=== PATIENT | female | born 1950 | race Caucasian/White ===

== ENCOUNTER → 2016-11-20 | Outpatient (CLI) | payer BC ==
[~2016-11-20] MED LIST: AMB5 PO; CETITAB27 PO; CHOL1000 PO; CHOLTAB3 PO; EPP3/2 IM; FLNIN NAE; PRO AIR; RETIN A; VNTHFA/IN INH; ZOLP10TA PO
--- NOTE | 2016-11-20 15:48 | DIAGNOSTIC IMAGING REPORT ---
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 FINDINGS: The mastoid air cells appear symmetrically aerated. Middle ear cavities are well aerated. The sphenoid maxillary ethmoid and frontal sinuses are clear. There is nasal septal deviation to the right. The left ostiomeatal unit is patent. There is ostial narrowing of the right ostiomeatal unit. The olfactory fossa depth is 6 mm bilaterally. The frontal recesses are patent bilaterally IMPRESSION: 1. Nasal septal deviation to the right 2. Ostial narrowing of the right ostiomeatal unit 3. No evidence of significant mucosal thickening Electronically signed by: Jayy Drummond M.D. 11/20/2016 3:46 PM Dictated Date/Time: 11/20/2016 3:43 PM
== END | disposition home or self-care (01) ==
LOC: C.CTS 15:25
PROVIDERS: ATTEND Hospitalist
DX: J34.2 Deviated nasal septum (principal); J32.9 Chronic sinusitis, unspecified; J34.3 Hypertrophy of nasal turbinates; R09.81 Nasal congestion

== ENCOUNTER → 2016-12-24 | Outpatient (CLI) | payer BC ==
[2016-12-24 18:29] LABS: INFLUENZA A PCR Neg for Influ A (NEG); INFLUENZA B PCR Neg for Influ B (NEG)
== END | disposition home or self-care (01) ==
LOC: C.LABBC 14:40
PROVIDERS: ATTEND Family Medicine
DX: R68.89 Other general symptoms and signs (principal)

== ENCOUNTER → 2017-03-25 | Day surgery (SDC) | payer BC ==
[2017-03-19 13:39] VITALS: BMI 24.0
[~2017-03-25] VITALS: Ht 167.6 cm; Wt 67.7 kg
[~2017-03-25] MED LIST changes: -AMB5 PO; -CHOLTAB3 PO; -FLNIN NAE; +LIDOCAINE HCL 2% 2 ML VIAL (20MG/ML) ONE; +MIDAZOLAM HCL 1 MG/ML 2ML VIAL ONE; -PRO AIR; +PROPOFOL IV EMULSION 10 MG/ML 20 ML VIAL IV ONE; -RETIN A
[2017-03-25 09:57] VITALS: Ht 167.6 cm; Wt 67.7 kg
--- NOTE | 2017-03-25 10:29 | Endo History and Physical ---
History & Physical Date of Service: March 25, 2017. Chief Complaint: Screening for colon cancer Referring Physician: Dr. Spencer History of Present Illness 66 yo CF who presents for screening colonoscopy. Past Surgical History Hx Cardiac Surgery: No Hx Internal Defibrillator: No Hx Pacemaker: No Hx Abdominal Surgery: No Hx of Implantable Prosthesis: No Hx Post-Op Nausea and Vomiting: No Hx Cancer Surgery: Yes (RT/LEFT MASTECTOMY WITH RECONSTRUCTION AND REVISIONS) Hx Thoracic Surgery: No Hx Orthopedic: No Hx Urinary Tract Surgery: No Family History Colon CA Social History Smoking Status: Never Smoker Hx Substance Use: No Hx Alcohol Use: No Allergies Coded Allergies: Codeine (Verified Allergy, Intermediate, RASH, 03/25/17) Acetaminophen (Verified Allergy, Unknown, RASH, 03/19/17) Grass (Verified Allergy, Unknown, ALLERGY TESTING, 03/19/17) Mustard (Verified Allergy, Unknown, ANAPHYLAXIS, 03/19/17) Propoxyphene (Verified Allergy, Unknown, RASH AND VOMITTING, 03/19/17) Turmeric (Verified Allergy, Unknown, ANAPHYLAXIS, 03/19/17) Current Medications Reported Home Medications Medications Dose Route/Sig Max Daily Dose Days Date Category Vitamin D3 (Cholecalciferol) 1,000 Unit Tab 1 Tab PO DAILY 90 03/19/17 Reported Ventolin Hfa (Albuterol) 200 Puffs/30281 Mcg Aers 2-4 Puffs INH Q6H PRN 03/19/17 Reported Ambien (Zolpidem Tartrate) 10 Mg Tab 5 Mg PO HS PRN 03/19/17 Reported Zyrtec-D Er 5MG/120MG (Cetirizine/Pseudoephedrine) Tabcr 1 Tab PO Q12H 03/19/17 Reported Epipen (Epinephrine) 0.3 Mg/0.3 Ml Inj 0.3 Mg IM UD 12/13/12 Reported Vital Signs Weight (Kilograms): 67.73 Height (Feet): 5 Height (Inches): 6 Date Time Temp Pulse Resp B/P Pulse Ox O2 Delivery O2 Flow Rate FiO2 03/25/17 10:02 36.6 79 20 128/61 99 Room Air Physical Exam General Appearance: WD/WN, no apparent distress Respiratory/Chest: Auscultation: breath sounds normal Cardiovascular: Heart Auscultation: RRR Abdomen: Bowel Sounds: normal Inspection & Palpation: soft, non-distended, no tenderness, guarding & rebound Assessment and Plan Assessment: 66 yo CF who presents for screening colonoscopy. Plan: Proceed with colonoscopy.
--- NOTE | 2017-03-25 10:49 | Discharge Instructions ---
Endoscopy Patient Instructions Date / Procedure(s) Performed March 25, 2017. Colonoscopy Allergy Information Coded Allergies: Codeine (Verified Allergy, Intermediate, RASH, 03/25/17) Acetaminophen (Verified Allergy, Unknown, RASH, 03/19/17) Grass (Verified Allergy, Unknown, ALLERGY TESTING, 03/19/17) Mustard (Verified Allergy, Unknown, ANAPHYLAXIS, 03/19/17) Propoxyphene (Verified Allergy, Unknown, RASH AND VOMITTING, 03/19/17) Turmeric (Verified Allergy, Unknown, ANAPHYLAXIS, 03/19/17) Discharge Date / Findings March 25, 2017. Diverticulosis Internal hemorrhoids Medication Instructions OK to resume all medications today as prescribed Reported Home Medications Medications Dose Route/Sig Max Daily Dose Days Date Category Vitamin D3 (Cholecalciferol) 1,000 Unit Tab 1 Tab PO DAILY 90 03/19/17 Reported Ventolin Hfa (Albuterol) 200 Puffs/18537 Mcg Aers 2-4 Puffs INH Q6H PRN 03/19/17 Reported Ambien (Zolpidem Tartrate) 10 Mg Tab 5 Mg PO HS PRN 03/19/17 Reported Zyrtec-D Er 5MG/120MG (Cetirizine/Pseudoephedrine) Tabcr 1 Tab PO Q12H 03/19/17 Reported Epipen (Epinephrine) 0.3 Mg/0.3 Ml Inj 0.3 Mg IM UD 12/13/12 Reported Provider Instructions Activity Restrictions - No exercising or heavy lifting for 24 hours. - Do not drink alcohol the day of the procedure. - Do not drive a car or operate machinery until the day after the procedure. - Do not make any important decisions or sign important papers in 24 hours after the procedure. Following Day: - Return to full activity which may include returning to work/school. Diet Start your diet with liquids and light foods (jello, soup, juice, toast). Then eat your usual diet if not nauseated. Treatment For Common After Affects For mild abdominal pain, bloating, or excessive gas: - Rest - Eat lightly - Lie on right side Follow-Up Information Follow-up with Dr. Spencer as scheduled Anesthesia Information What You Should Know You have had a procedure that required some medicine to reduce anxiety and discomfort. This treatment is called moderate sedation. After receiving the treatment, you may be sleepy, but you will be able to breathe on your own. The effects of the treatment may last for several hours. Follow these instructions along with Activity/Diet recommendations noted above: * Do NOT do anything where dizziness or clumsiness would be dangerous. * Rest quietly at home today, then you can be up and about tomorrow. * Have a responsible person stay with you the rest of today. * You may have had an I.V. today. If so, you may take the dressing off later today. Recommendations Call your doctor if: * Trouble breathing * Continuous vomiting for more than 24 hours * Temperature above 101 degrees * Severe abdominal pain or bloating * Pain not relieved by pain medicine ordered * There is increased drainage or redness from any incision * A large amount of rectal bleeding greater than 2-3 tablespoons. (If you had a polyp/s removed or have hemorrhoids, a small amount of blood - from the rectum is to be expected.) * You have any unanswered questions or concerns. IN THE EVENT OF A SERIOUS EMERGENCY, GO TO THE NEAREST EMERGENCY ROOM Your discharge instructions were prepared by provider Jamel Ardon. Patient Instructions Signature Page Tabatha Cole Patient (or Guardian) Signature/Date: I have read and understand the instructions given to me by my caregivers. Caregiver/RN/Doctor Signature/Date: The above-named patient and/or guardian has received patient instructions on this date. + Original Patient Signature Page (only) stays with chart. Please make copy for patient.
--- NOTE | 2017-03-25 10:52 | GI REPORT ---
Procedure Date: 03/25/2017 10:20 AM Procedure: Colonoscopy Indications: Screening for colorectal malignant neoplasm Medicines: Monitored Anesthesia Care Complications: No immediate complications. Estimated Blood Loss: Estimated blood loss: none. Procedure: Pre-Anesthesia Assessment: - Prior to the procedure, a History and Physical was performed, and patient medications and allergies were reviewed. The patient's tolerance of previous anesthesia was also reviewed. The risks and benefits of the procedure and the sedation options and risks were discussed with the patient. All questions were answered, and informed consent was obtained. Prior Anticoagulants: The patient has taken no previous anticoagulant or antiplatelet agents. ASA Grade Assessment: II - A patient with mild systemic disease. After reviewing the risks and benefits, the patient was deemed in satisfactory condition to undergo the procedure. After I obtained informed consent, the scope was passed under direct vision. Throughout the procedure, the patient's blood pressure, pulse, and oxygen saturations were monitored continuously. The scope was introduced through the anus and advanced to the terminal ileum. The colonoscopy was performed without difficulty. The patient tolerated the procedure well. The quality of the bowel preparation was good. The terminal ileum, ileocecal valve, appendiceal orifice, and rectum were photographed. Findings: Multiple small-mouthed diverticula were found in the sigmoid colon. Non-bleeding internal hemorrhoids were found during retroflexion. The hemorrhoids were small. Impression: - Diverticulosis in the sigmoid colon. - Non-bleeding internal hemorrhoids. - No specimens collected. Recommendation: - Resume previous diet. - Continue present medications. - Repeat colonoscopy in 10 years for surveillance. - Return to primary care physician as previously scheduled. Jamel Ardon, 03/25/2017 10:51:36 AM This report has been signed electronically. Note Initiated On: 03/25/2017 10:20 AM I attest to the content of the Intraoperative Record and orders documented therein, exceptions below
--- NOTE | 2017-03-25 11:20 | Anesthesiology Progress Note ---
Anesthesia Post Op Note Date & Time March 25, 2017 at 11:20 Vital Signs Pain Intensity: 0 Vital Signs Past 12 Hours Date Time Temp Pulse Resp B/P Pulse Ox O2 Delivery O2 Flow Rate FiO2 03/25/17 11:09 67 20 124/65 100 Room Air 03/25/17 10:54 36.4 66 20 113/67 99 Room Air 03/25/17 10:02 36.6 79 20 128/61 99 Room Air Notes Mental Status: alert / awake / arousable, participated in evaluation Pt Amnestic to Procedure: Yes Nausea / Vomiting: adequately controlled Pain: adequately controlled Airway Patency, RR, SpO2: stable & adequate BP & HR: stable & adequate Hydration State: stable & adequate Anesthetic Complications: no major complications apparent
[2017-03-25 11:24] VITALS: BP 114/70; PULSE 69; O2SAT 99
== END | disposition home or self-care (01) ==
LOC: C.GI 09:25
PROVIDERS: ATTEND Internal Medicine
DX: Z12.11 Encounter for screening for malignant neoplasm of colon (principal); K64.8 Other hemorrhoids; K57.30 Diverticulosis of large intestine without perforation or abscess without bleeding; Z90.13 Acquired absence of bilateral breasts and nipples; Z80.0 Family history of malignant neoplasm of digestive organs

== ENCOUNTER → 2018-01-11 | Outpatient (CLI) | payer OTHER ==
[~2018-01-11] MED LIST changes: -LIDOCAINE HCL 2% 2 ML VIAL (20MG/ML) ONE; -MIDAZOLAM HCL 1 MG/ML 2ML VIAL ONE; -PROPOFOL IV EMULSION 10 MG/ML 20 ML VIAL IV ONE
== END | disposition home or self-care (01) ==
LOC: C.LAB1850 13:52
PROVIDERS: ATTEND Internal Medicine
DX: R68.89 Other general symptoms and signs (principal)

== ENCOUNTER 2019-12-22 07:10 | Inpatient (IN) ==
--- NOTE | 2019-12-02 14:22 | PAT Medication Instructions ---
Medication Instructions Date of Service December 02, 2019 Home Medications Medication Instructions Recorded tretinoin microspheres 0.1 % 1 appln TOPICAL HS #20 gm 08/09/19 topical gel albuterol sulfate 90 mcg/actuation aerosol inhaler 2 puffs INHALATION Q4H PRN artificial tears(hypromellose) 0.3 % eye drops 1 drp OP UD cetirizine 5 mg-pseudoephedrine ER 120 mg tablet,extended release,12hr 1 tab PO BID ciclopirox 8 % topical solution 1 appln TOPICAL DAILY epinephrine 0.3 mg/0.3 mL injection, auto-injector 0.3 mg IM USEASDIRECTD PRN fluticasone propionate 50 mcg/actuation nasal spray,suspension 1 sprays INTRANASAL BID tretinoin microspheres 0.1 % topical gel 1 appln TOPICAL HS zolpidem 5 mg PO HS PRN Continue as directed epinephrine 0.3 mg/0.3 mL injection, auto-injector 0.3 mg IM USEASDIRECTD PRN STOP taking 24 hours before surgery ciclopirox 8 % topical solution 1 appln TOPICAL DAILY tretinoin microspheres 0.1 % topical gel 1 appln TOPICAL HS DO NOT take the morning of surgery cetirizine 5 mg-pseudoephedrine ER 120 mg tablet,extended release,12hr 1 tab PO BID Take morning of surgery With a small sip of water, OTHERWISE NOTHING TO EAT OR DRINK AFTER MIDNIGHT: albuterol sulfate 90 mcg/actuation aerosol inhaler 2 puffs INHALATION Q4H PRN (if needed, and bring with you to the hospital) artificial tears(hypromellose) 0.3 % eye drops 1 drp OP UD fluticasone propionate 50 mcg/actuation nasal spray,suspension 1 sprays INTRANASAL BID Take evening before surgery albuterol sulfate 90 mcg/actuation aerosol inhaler 2 puffs INHALATION Q4H PRN (if needed) artificial tears(hypromellose) 0.3 % eye drops 1 drp OP UD cetirizine 5 mg-pseudoephedrine ER 120 mg tablet,extended release,12hr 1 tab PO BID fluticasone propionate 50 mcg/actuation nasal spray,suspension 1 sprays INTRANASAL BID zolpidem 5 mg PO HS PRN (if needed) Other Notes If you have any questions please call us at [phone] or [phone] or [phone] or [phone]
--- NOTE | 2019-12-02 14:53 | Anesthesiology Consultation ---
Date of Service December 02, 2019 Assessment & Plan (1) Encounter for pre-operative examination: Chart Review Chart Review: Acceptable Risk for Surgery (pending surgeon ordered PCP clearance) and Patient seen in Pre Admission Testing Teaching & Discussion Instructed NPO after midnight before surgery, except medications with 15 cc of water. Medication instructions provided according to the PAT guidelines. History Surgery Operation Date: 12/22/19 11:35 Proposed Procedures p Right Total Hip Arthroplasty - Walter Giraldo MD Height/Weight Height: 5 ft 6 in Weight: 69.3 kg Allergies Allergy/AdvReac Type Severity Reaction Status Date / Time acetaminophen Allergy Unknown RASH Verified 11/30/19 14:26 codeine Allergy Unknown RASH Verified 11/30/19 14:26 grass pollen-perennial rye, Allergy Unknown ALLERGY Verified 11/30/19 14:26 standar TESTING levocetirizine Allergy Unknown ITCHING Verified 11/30/19 14:26 ALL OVER mustard Allergy Unknown ANAPHYLAXIS Verified 11/30/19 14:26 naproxen Allergy Unknown RED Verified 11/30/19 15:12 PURPLISH SPOTS ON LEG, LOOKS LIKE BROKEN BLOOD VESSELS oxycodone [From Percocet] Allergy Unknown Rash Verified 11/30/19 14:26 propoxyphene Allergy Unknown RASH AND Verified 11/30/19 14:26 VOMITTING silver Allergy Unknown RASH, ITCHY Verified 11/30/19 15:12 silver nitrate Allergy Unknown RASH, ITCHY Verified 11/30/19 15:12 sodium citrate Allergy Unknown SKIN Verified 11/30/19 14:26 REDNESS AND CHEST CONGESTION sodium metabisulfite Allergy Unknown SKIN Verified 11/30/19 14:26 REDNESS AND CHEST CONGESTION sodium sulfate Allergy Unknown SKIN Verified 11/30/19 14:26 REDNESS AND CHEST CONGESTION turmeric Allergy Unknown ANAPHYLAXIS Verified 11/30/19 14:26 Bee sting Allergy Severe BRILLIANT Uncoded 11/30/19 14:26 RED, AND BP DROPPED DUST MITES Allergy Unknown CONGESTION Uncoded 11/30/19 14:27 Medications Home Medications Medication Instructions Recorded Confirmed Last Taken albuterol sulfate 90 mcg/actuation 2 puffs INHALATION Q4H PRN #1 gm 08/08/19 11/30/19 Unknown aerosol inhaler artificial tears(hypromellose) 0.3 1 drp OP UD 08/08/19 11/30/19 Unknown % eye drops cetirizine 5 mg-pseudoephedrine ER 1 tab PO BID 08/08/19 11/30/19 Unknown 120 mg tablet,extended release,12hr ciclopirox 8 % topical solution 1 appln TOPICAL DAILY #1 ml 08/08/19 11/30/19 Unknown epinephrine 0.3 mg/0.3 mL 0.3 mg IM USEASDIRECTD PRN #1 ea 08/08/19 11/30/19 Unknown injection, auto-injector fluticasone propionate 50 1 sprays INTRANASAL BID #3 gm 08/08/19 11/30/19 Unknown mcg/actuation nasal spray,suspension tretinoin microspheres 0.1 % 1 appln TOPICAL HS #20 gm 08/09/19 11/30/19 Unknown topical gel zolpidem 5 mg PO HS PRN 11/30/19 11/30/19 Unknown Past Medical History Medical History (Updated 12/05/19 @ 08:30 by Torin Forbes) Acid reflux UNSURE IF DEFINITIVE DX Asthma ALLERGIC, USING ONLY A COUPLE TIMES PER YEAR AT MOST Basal cell carcinoma of skin of face FOLLOWING WITH DERM Chronic sinusitis Degenerative arthritis R HIP Deviated septum Dyslipidemia History of breast cancer S/P MASTECTOMY History of cataract R&L History of prediabetes Hx antineoplastic chemotherapy 2005 WITH RADIATION FOR BREAST CANCER Hx of radiation therapy FOR BREAST CANCER REOCCURENCE. Hypothyroid (Chronic) 2/2 RADIATION PER PATIENT Nausea and vomiting after administration of anesthetic agent Osteopenia Poor historian Thyroid nodule Exercise / Class Metabolic Activity II 4-5 Yardwork/Stairs/Walk up hill (Denies CP or SOB with 1 FOS, does daily at home) Past Family History Family History Mother Bipolar disorder Osteoarthritis Breast cancer Hypertension Stroke Father Alzheimer disease Hypertension Grandfather (Paternal) Cardiac disorder Aunt Breast cancer maternal Colorectal cancer maternal Asthma paternal Grandmother Family history of diabetes mellitus Past Surgical History Surgical History H/O tooth extraction History of biopsy THYROID S/P abdominoplasty S/P breast biopsy S/P breast reconstruction S/P cataract surgery S/P colonoscopy S/P hernia repair S/P mastectomy HX OF left 1989, right 1990 Past Anesthesia History No Hx of Anesthesia Complications (other than PONV) and No Family Hx of Anesthesia Complications History of PONV History of PONV and Hx of Motion Sickness Social History Smoking Status: Never smoker Do You Dip or Chew Tobacco: No Hx Alcohol Use: No Hx Substance Use: No substance use type: does not use Review of Systems Pt denies any recent chest pain, shortness of breath, palpitations, cough, fever or URI. Physical Exam Vital Signs BP: 119/74 P: 79bpm SPO2: 100% RA T: 98.4 F R: 12 ENMT Mouth: + dental restorations (one crown and few gold fillings); no chipped teeth and no loose teeth Thyromental Distance: < 3.5 Finger Breadths (3) Mallampati Class: I Neck normal visual inspection; neck extension not limited Respiratory normal respiratory effort Auscultation: lungs clear to auscultation bilaterally Cardiovascular Rate/Rhythm: regular rate and regular rhythm Heart Sounds: no murmur Vessels: no carotid bruit Extremities: no edema Testing Laboratory Results 12/02/19 14:58 12/02/19 14:58 PT 10.3 Seconds (9.0-12.0) 12/02/19 14:58 INR 1.0 (0.9-1.1) 12/02/19 14:58 APTT 27.0 Seconds (21.0-31.0) 12/02/19 14:58 Hemoglobin A1c 5.8 % (4.5-5.6) H 12/02/19 14:58 Urine Color Yellow 12/02/19 Unknown Urine Appearance Clear (Clear) 12/02/19 Unknown Urine pH 6.5 (4.5-7.5) 12/02/19 Unknown Ur Specific Earth 1.011 (1.000-1.030) 12/02/19 Unknown Urine Protein Negative (Negative) 12/02/19 Unknown Urine Glucose (UA) Negative (Negative) 12/02/19 Unknown Urine Ketones Negative (Negative) 12/02/19 Unknown Urine Nitrite Negative (Negative) 12/02/19 Unknown Ur Leukocyte Esterase Negative (Negative) 12/02/19 Unknown Blood Type O Negative 12/02/19 14:58 Antibody Screen NEGATIVE 12/02/19 14:58 12/02/19 Unknown Urine Culture - Final Urine,Clean Catch No growth - less than 1,000 colonies/mL. Electrocardiogram Date: 12/02/19 Findings: + NSR @ (73) Biatrial enlargement. No significant change from 06/20/09.
[2019-12-02 15:32] LABS: Basophils # (auto) 0.02 K/uL (0-0.2); Basophils % (auto) 0.3 %; Eosinophils # (auto) 0.14 K/uL (0-0.5); Eosinophils % (auto) 1.9 %; Hematocrit (blood only) 42.6 % (37-47); Hemoglobin 13.9 g/dL (12.0-16.0); Immature Granulocytes # (auto) 0.02 K/uL (0.00-0.02); Immature Granulocytes % (auto) 0.3 %; Lymphocytes # (auto) 1.86 K/uL (1.2-3.4); Lymphocytes % (auto) 25.1 %; Mean Corpuscular Hemoglobin 29.4 pg (25-34); Mean Corpuscular Hgb Conc 32.6 g/dL (32-36); Mean Corpuscular Volume 90.1 fL (80-100); Mean Platelet Volume 10.3 fL (7.4-10.4); Monocytes # (auto) 0.71 K/uL (0.11-0.59); Monocytes % (auto) 9.6 %; Neutrophils # (auto) 4.65 K/uL (1.4-6.5); Neutrophils % (auto) 62.8 %; Platelet Count 287 K/uL (130-400); RDW Coefficient of Variation 13.1 % (11.5-14.5); RDW Standard Deviation 43.3 fL (36.4-46.3); Red Blood Count 4.73 M/uL (4.2-5.4)
[2019-12-02 15:35] LABS: Appearance Urine Clear (Clear); Bilirubin Urine Negative (Negative); Blood Urine Negative (Negative); Color Urine Yellow; Glucose Urine UA Negative (Negative); Ketones Urine Negative (Negative); Leukocyte Esterase Urine Negative (Negative); Nitrite Urine Negative (Negative); Protein Urine Negative (Negative); Specific Gravity Urine 1.011 (1.000-1.030); Urobilinogen Urine Negative (Negative); pH Urine 6.5 (4.5-7.5)
[2019-12-02 15:41] LABS: Albumin Level 3.9 gm/dl (3.4-5.0); BUN Creatinine Ratio 19.8 (10-20); Calcium 9.4 mg/dl (8.5-10.1); Creatinine Clr Calc Pharmacy 55.5 ml/min; Est GFR (African American) 77.7; Potassium 3.7 mmol/L (3.5-5.1)
[2019-12-02 15:43] LABS: Prothrombin Time 10.3 Seconds (9.0-12.0)
[2019-12-02 15:44] LABS: Albumin Globulin Ratio 1.1 (0.9-2); Bilirubin,Total 0.8 mg/dl (0.2-1); Globulin 3.6 gm/dl (2.5-4.0); Total Protein 7.5 gm/dl (6.4-8.2)
--- NOTE | 2019-12-02 17:29 | Electrocardiogram Report ---
Test Reason : Blood Pressure : / mmHG Vent. Rate : 073 BPM Atrial Rate : 073 BPM P-R Int : 148 ms QRS Dur : 082 ms QT Int : 412 ms P-R-T Axes : 078 083 089 degrees QTc Int : 453 ms Normal sinus rhythm Biatrial enlargement Abnormal ECG When compared with ECG of 20-JUN-2009 20:22, No significant change was found Confirmed by Bk Guido ([id number]) on 12/02/2019 5:29:04 PM Referred By: Walter Giraldo Confirmed By:Jermaine Guido
[2019-12-03 08:23] LABS: Estimated Average Glucose 120 mg/dl; Hemoglobin A1C 5.8 % (4.5-5.6)
--- NOTE | 2019-12-06 10:44 | History & Physical Report ---
Date of Service December 06, 2019 Assessment & Plan (1) Osteoarthritis of right hip: Diagnosis: Right hip osteoarthritis Procedure: Right total hip arthroplasty Plan: Patient is scheduled to undergo right total hip arthroplasty on December at the [facility] as an inpatient. Risks and complications of the procedure such as a infection, bleeding, pain, scarring, nerve blood vessel damage, weakness, wound problems, stiffness, incomplete relief of symptoms, hardware failure, hardware loosening, wear, fracture, tendon or ligament injury, dislocation, leg length inequality, blood clots, embolism, heart attack, stroke, and were explained to the patient had a visit today by Dr. Giraldo. Patient understood the risks and informed consent was obtained. Patient had significant worries about leg length inequality due to her SI joint dysfunction. Patient has an upcoming appointment with her primary care provider Dr. Perez to obtain preoperative clearance. Prior to her appointment today she met with anesthesia and had a CBC with differ ential, complete metabolic panel, PT/INR, blood type and screen, urinalysis, urine culture, EKG, hemoglobin A1c, and a nasal culture for MRSA. The total hip arthroplasty packet was reviewed at length. I also provided the patient with information about lectures offered at [facility] in regards to joint replacement surgery. I educated her about the use of antibiotics before dental procedures after total joint replacement surgery. We discussed discharge planning. Patient states that she will most likely be discharged to her home with in-house therapy depending on how well she does with physical therapy day 1 postop. I advised the patient that I will provide her with postoperative pain medications upon discharge from the hospital. She will be on a baby aspirin twice daily for 30 days postoperatively for blood clot prevention. I instructed her to purchase a hip kit from either [employer] or [employer]. Patient states that she has a walker that she will bring with her on the day of surgery. Patient and her had multiple questions during her visit today and all were answered completely and effectively. I spent approximately 1 hour and 20 minutes with the patient during her preoperative visit today. Patient and her verbalized understanding of all information provided, thanked us for the care, and stated if there are questions or concerns that should arise prior to the patient surgery date, they will contact clinic accordingly. History of Present Illness Chief Complaint: Chief complaint: Right hip pain Primary Care Provider: Caitlin Ramesh,MD History of present illness: This 69-year-old female presents the clinic today for preoperative history and physical. Patient complains of 1 1/2-year history of persistent right hip pain that is become worse over the past few months. She states that the pain prevents her from walking her dog or walking on the beach during her most recent vacation. Patient states she has tried conservative measures over the past year without alleviation of her pain. She localizes most of her pain to the right groin. Symptoms are exacerbated with her activity levels. Patient has been attending physical therapy but states that it has not helped alleviate her pain. Allergies: Darvocet-N 100, Percocet 03/04/2025, codeine, tumeric, mustard, dust mites, grass, bee stings Medications: albuterol CFC free 90 mcg/inh MDI, 1 puff, inhaled, qid, PRN Ambien, See Instructions, PRN cholecalciferol 1000 intl units oral tablet, 1000 Int_Unit= 1 tab, PO, Daily ciclopirox 8% topical solution, 1 appl, topical, Daily, 3 refills Fish Oil oral capsule, PO, Daily Flonase, 1 spray, intranasal, Daily Metamucil 3.4 gm/11 gm oral powder for reconstitution, See Instructions naproxen 500 mg oral tablet, 500 mg= 1 tab, PO, bid, 1 refills, Not taking tretinoin 0.1% topical cream, 1 appl, topical, qhs, 3 refills ZyrTEC-D 5 mg-120 mg oral tablet, extended release, 1 tab, PO, bid, PRN Social history: Patient denies a history of tobacco alcohol or illicit drug use. . Radiographic imaging: X-rays of the right hip show severe osteoarthritis. There is no sign of dislocation subluxation or fracture. There was note of clips in the pelvic area consistent with prior surgery. Allergies Allergy/AdvReac Type Severity Reaction Status Date / Time acetaminophen Allergy Unknown RASH Verified 11/30/19 14:26 codeine Allergy Unknown RASH Verified 11/30/19 14:26 grass pollen-perennial rye, Allergy Unknown ALLERGY Verified 11/30/19 14:26 standar TESTING levocetirizine Allergy Unknown ITCHING Verified 11/30/19 14:26 ALL OVER mustard Allergy Unknown ANAPHYLAXIS Verified 11/30/19 14:26 naproxen Allergy Unknown RED Verified 11/30/19 15:12 PURPLISH SPOTS ON LEG, LOOKS LIKE BROKEN BLOOD VESSELS oxycodone [From Percocet] Allergy Unknown Rash Verified 11/30/19 14:26 propoxyphene Allergy Unknown RASH AND Verified 11/30/19 14:26 VOMITTING silver Allergy Unknown RASH, ITCHY Verified 11/30/19 15:12 silver nitrate Allergy Unknown RASH, ITCHY Verified 11/30/19 15:12 sodium citrate Allergy Unknown SKIN Verified 11/30/19 14:26 REDNESS AND CHEST CONGESTION sodium metabisulfite Allergy Unknown SKIN Verified 11/30/19 14:26 REDNESS AND CHEST CONGESTION sodium sulfate Allergy Unknown SKIN Verified 11/30/19 14:26 REDNESS AND CHEST CONGESTION turmeric Allergy Unknown ANAPHYLAXIS Verified 11/30/19 14:26 Bee sting Allergy Severe BRILLIANT Uncoded 11/30/19 14:26 RED, AND BP DROPPED DUST MITES Allergy Unknown CONGESTION Uncoded 11/30/19 14:27 Home Medications Home Medications Medication Instructions Recorded Confirmed Type albuterol sulfate 90 mcg/actuation 2 puffs INHALATION Q4H PRN #1 gm 08/08/19 11/30/19 History aerosol inhaler artificial tears(hypromellose) 0.3 1 drp OP UD 08/08/19 11/30/19 History % eye drops cetirizine 5 mg-pseudoephedrine ER 1 tab PO BID 08/08/19 11/30/19 History 120 mg tablet,extended release,12hr ciclopirox 8 % topical solution 1 appln TOPICAL DAILY #1 ml 08/08/19 11/30/19 History epinephrine 0.3 mg/0.3 mL 0.3 mg IM USEASDIRECTD PRN #1 ea 08/08/19 11/30/19 History injection, auto-injector fluticasone propionate 50 1 sprays INTRANASAL BID #3 gm 08/08/19 11/30/19 History mcg/actuation nasal spray,suspension tretinoin microspheres 0.1 % 1 appln TOPICAL HS #20 gm 08/09/19 11/30/19 Rx topical gel zolpidem 5 mg PO HS PRN 11/30/19 11/30/19 History Past Med/Surg History Medical History Acid reflux UNSURE IF DEFINITIVE DX Asthma ALLERGIC, USING ONLY A COUPLE TIMES PER YEAR AT MOST Basal cell carcinoma of skin of face FOLLOWING WITH DERM Chronic sinusitis Degenerative arthritis R HIP Deviated septum Dyslipidemia History of breast cancer S/P MASTECTOMY History of cataract R&L History of prediabetes Hx antineoplastic chemotherapy 2006 WITH RADIATION FOR BREAST CANCER Hx of radiation therapy FOR BREAST CANCER REOCCURENCE. Hypothyroid (Chronic) 2/2 RADIATION PER PATIENT Nausea and vomiting after administration of anesthetic agent Osteopenia Poor historian Thyroid nodule Surgical History H/O tooth extraction History of biopsy THYROID S/P abdominoplasty S/P breast biopsy S/P breast reconstruction S/P cataract surgery S/P colonoscopy S/P hernia repair S/P mastectomy HX OF left 1989, right 1990 Family History Mother Bipolar disorder Osteoarthritis Breast cancer Hypertension Stroke Father Alzheimer disease Hypertension Grandfather (Paternal) Cardiac disorder Aunt Breast cancer maternal Colorectal cancer maternal Asthma paternal Grandmother Family history of diabetes mellitus Social History Preferred Language: Palauan Communication Ability: Effective Spray Unit Feeder Required: No Beliefs That Will Affect Care: None marital status: Current Living Situation: Spouse Feels Safe at Home: Yes Smoking Status: Never smoker Second Hand Exposure: No ; Hx Alcohol Use: No Hx Substance Use: No Seatbelt Use: always Review of Systems All systems reviewed & are unremarkable except as noted in HPI & below Physical Exam Physical Exam: Physical examination: Skin: Patient skin is normal appearance with no open skin lesions or discharge. Eyes: Pupils are equal and reactive to light accommodating, extraocular movements are intact. Throat: Posterior oropharynx is clear with absence of edema erythema or exudate. Cardiovascular exam: Patient has a grade 1/6 holosystolic murmur heard best over the left lower sternal border. She had no gallops. She had a regular rate and rhythm. Lung exam: Auscultation of lung abdi were revealed clear breath sounds throughout with no wheezing rales or rhonchi. Abdomen: Nonobese nontender nondistended with normoactive bowel sounds. Extremities: Right hip; hip flexion was to 135 degrees internal rotation to -5 degrees external rotation to 20 degrees. Stinchfield test was negative. Straight leg raise test was negative. Logroll test was negative. Eileen test was 4 fists with referred pain to the groin. Patient had tenderness palpation of the anterior groin. There was crepitation with range of motion. She was neurovascularly intact in the right lower extremity. She had no tenderness to palpation of the greater trochanter. Passive Abduction and adduction cause referred pain to the groin. Neurological exam: Cranial nerves II through XII intact with no motor or sensory deficit. General/psychological exam: Patient is alert and oriented x3 with appropriate hygiene. Results & Data Laboratory Results Lab Results 12/02/19 12/02/19 12/02/19 Range/Units 14:58 14:58 14:58 WBC 7.40 (4.8-10.8) K/uL RBC 4.73 (4.2-5.4) M/uL Hgb 13.9 (12.0-16.0) g/dL Hct 42.6 (37-47) % MCV 90.1 (80-100) fL MCH 29.4 (25-34) pg MCHC 32.6 (32-36) g/dL RDW Std Deviation 43.3 (36.4-46.3) fL RDW Coeff of Sejal 13.1 (11.5-14.5) % Plt Count 287 (130-400) K/uL MPV 10.3 (7.4-10.4) fL Immature Gran % (Auto) 0.3 % Neut % (Auto) 62.8 % Lymph % (Auto) 25.1 % [place] % (Auto) 9.6 % Eos % (Auto) 1.9 % Baso % (Auto) 0.3 % Immature Gran # (Auto) 0.02 (0.00-0.02) K/uL Neut # (Auto) 4.65 (1.4-6.5) K/uL Lymph # (Auto) 1.86 (1.2-3.4) K/uL [place] # (Auto) 0.71 H (0.11-0.59) K/uL Eos # (Auto) 0.14 (0-0.5) K/uL Baso # (Auto) 0.02 (0-0.2) K/uL PT 10.3 (9.0-12.0) Seconds INR 1.0 (0.9-1.1) APTT 27.0 (21.0-31.0) Seconds PTT Ratio 1.0 Sodium (136-145) mmol/L Potassium (3.5-5.1) mmol/L Chloride (98-107) mmol/L Carbon Dioxide (21-32) mmol/L Anion Gap (3-11) BUN (7-18) mg/dl Creatinine (0.6-1.2) mg/dl Est Cr Clr Drug Dosing ml/min Est GFR ( Amer) Est GFR (Non-Af Amer) BUN/Creatinine Ratio (10-20) Glucose (70-99) mg/dl Estimat Average Glucose 120 mg/dl Hemoglobin A1c 5.8 H (4.5-5.6) % Calcium (8.5-10.1) mg/dl Total Bilirubin (0.2-1) mg/dl AST (15-37) U/L ALT (12-78) U/L Alkaline Phosphatase (45-117) U/L Total Protein (6.4-8.2) gm/dl Albumin (3.4-5.0) gm/dl Globulin (2.5-4.0) gm/dl Albumin/Globulin Ratio (0.9-2) Urine Color Urine Appearance (Clear) Urine pH (4.5-7.5) Ur Specific [place] (1.000-1.030) Urine Protein (Negative) Urine Glucose (UA) (Negative) Urine Ketones (Negative) Urine Blood (Negative) Urine Nitrite (Negative) Urine Bilirubin (Negative) Urine Urobilinogen (Negative) Ur Leukocyte Esterase (Negative) Nasal Screen MRSA (PCR) (Negative) Blood Type Antibody Screen 12/02/19 12/02/19 12/02/19 Range/Units 14:58 14:58 Unknown WBC (4.8-10.8) K/uL RBC (4.2-5.4) M/uL Hgb (12.0-16.0) g/dL Hct (37-47) % MCV (80-100) fL MCH (25-34) pg MCHC (32-36) g/dL RDW Std Deviation (36.4-46.3) fL RDW Coeff of Sejal (11.5-14.5) % Plt Count (130-400) K/uL MPV (7.4-10.4) fL Immature Gran % (Auto) % Neut % (Auto) % Lymph % (Auto) % [place] % (Auto) % Eos % (Auto) % Baso % (Auto) % Immature Gran # (Auto) (0.00-0.02) K/uL Neut # (Auto) (1.4-6.5) K/uL Lymph # (Auto) (1.2-3.4) K/uL [place] # (Auto) (0.11-0.59) K/uL Eos # (Auto) (0-0.5) K/uL Baso # (Auto) (0-0.2) K/uL PT (9.0-12.0) Seconds INR (0.9-1.1) APTT (21.0-31.0) Seconds PTT Ratio Sodium 137 (136-145) mmol/L Potassium 3.7 (3.5-5.1) mmol/L Chloride 101 (98-107) mmol/L Carbon Dioxide 32 (21-32) mmol/L Anion Gap 4.0 (3-11) BUN 17 (7-18) mg/dl Creatinine 0.87 (0.6-1.2) mg/dl Est Cr Clr Drug Dosing 55.5 ml/min Est GFR ( Amer) 77.7 Est GFR (Non-Af Amer) 67.0 BUN/Creatinine Ratio 19.8 (10-20) Glucose 94 (70-99) mg/dl Estimat Average Glucose mg/dl Hemoglobin A1c (4.5-5.6) % Calcium 9.4 (8.5-10.1) mg/dl Total Bilirubin 0.8 (0.2-1) mg/dl AST 14 L (15-37) U/L ALT 26 (12-78) U/L Alkaline Phosphatase 79 (45-117) U/L Total Protein 7.5 (6.4-8.2) gm/dl Albumin 3.9 (3.4-5.0) gm/dl Globulin 3.6 (2.5-4.0) gm/dl Albumin/Globulin Ratio 1.1 (0.9-2) Urine Color Yellow Urine Appearance Clear (Clear) Urine pH 6.5 (4.5-7.5) Ur Specific [place] 1.011 (1.000-1.030) Urine Protein Negative (Negative) Urine Glucose (UA) Negative (Negative) Urine Ketones Negative (Negative) Urine Blood Negative (Negative) Urine Nitrite Negative (Negative) Urine Bilirubin Negative (Negative) Urine Urobilinogen Negative (Negative) Ur Leukocyte Esterase Negative (Negative) Nasal Screen MRSA (PCR) (Negative) Blood Type O Negative Antibody Screen NEGATIVE 12/02/19 Range/Units Unknown WBC (4.8-10.8) K/uL RBC (4.2-5.4) M/uL Hgb (12.0-16.0) g/dL Hct (37-47) % MCV (80-100) fL MCH (25-34) pg MCHC (32-36) g/dL RDW Std Deviation (36.4-46.3) fL RDW Coeff of Sejal (11.5-14.5) % Plt Count (130-400) K/uL MPV (7.4-10.4) fL Immature Gran % (Auto) % Neut % (Auto) % Lymph % (Auto) % [place] % (Auto) % Eos % (Auto) % Baso % (Auto) % Immature Gran # (Auto) (0.00-0.02) K/uL Neut # (Auto) (1.4-6.5) K/uL Lymph # (Auto) (1.2-3.4) K/uL [place] # (Auto) (0.11-0.59) K/uL Eos # (Auto) (0-0.5) K/uL Baso # (Auto) (0-0.2) K/uL PT (9.0-12.0) Seconds INR (0.9-1.1) APTT (21.0-31.0) Seconds PTT Ratio Sodium (136-145) mmol/L Potassium (3.5-5.1) mmol/L Chloride (98-107) mmol/L Carbon Dioxide (21-32) mmol/L Anion Gap (3-11) BUN (7-18) mg/dl Creatinine (0.6-1.2) mg/dl Est Cr Clr Drug Dosing ml/min Est GFR ( Amer) Est GFR (Non-Af Amer) BUN/Creatinine Ratio (10-20) Glucose (70-99) mg/dl Estimat Average Glucose mg/dl Hemoglobin A1c (4.5-5.6) % Calcium (8.5-10.1) mg/dl Total Bilirubin (0.2-1) mg/dl AST (15-37) U/L ALT (12-78) U/L Alkaline Phosphatase (45-117) U/L Total Protein (6.4-8.2) gm/dl Albumin (3.4-5.0) gm/dl Globulin (2.5-4.0) gm/dl Albumin/Globulin Ratio (0.9-2) Urine Color Urine Appearance (Clear) Urine pH (4.5-7.5) Ur Specific [place] (1.000-1.030) Urine Protein (Negative) Urine Glucose (UA) (Negative) Urine Ketones (Negative) Urine Blood (Negative) Urine Nitrite (Negative) Urine Bilirubin (Negative) Urine Urobilinogen (Negative) Ur Leukocyte Esterase (Negative) Nasal Screen MRSA (PCR) Negative (Negative) Blood Type Antibody Screen
[~2019-12-22 07:10] MED LIST changes: +ACETAMINOPHEN 500 MG TAB PO SCH; +BUPIVACAINE 0.5 % 5 MG/1 ML PF 10ML VIAL ONE; +CEFAZOLIN 2000MG 2,000 MG/15 ML SYR IV SCH; -CETITAB27 PO; -CHOL1000 PO; +CeleBREX 200 MG CAP PO SCH; -EPP3/2 IM; +FAMOTIDINE 20 MG TAB PO SCH; +LR 500ML BOLUS, THEN 15ML/HR IV SCH; +LR 60ML/HR IV SCH; +METOCLOPRAMIDE HCL 10 MG TABLET PO SCH; +ROPIVACAINE 0.5% HCL/PF 150 MG, BUPIVACAINE 0.5% MPF 30 ML, EPINEPHrine 0.15 MG, Ketoro... INFIL SCH; +SCOPOLAMINE 1.5 MG TDSY TD SCH; +TRAMADOL HCL 50 MG TABLET PO SCH; +TRANEXAMIC ACID 1,000 MG **IV Intra-op IV SCH; +TRANEXAMIC ACID 1,000 MG **IV Pre-op IV SCH; -VNTHFA/IN INH; -ZOLP10TA PO; +dexAMETHasone 4 MG TAB PO SCH
[2019-12-22] MEDS ORDERED: fentaNYL citrate 100 MCG/2 ML VIAL ONE (07:30)
[2019-12-22] MEDS ORDERED: MIDAZOLAM HCL 1 MG/ML 2ML VIAL ONE ×2 (07:30→08:00)
[2019-12-22] MEDS ORDERED: ONDANSETRON INJ 2 MG/ML 2 ML VIAL IV PRN ×2 (08:24→14:36)
[2019-12-22] MEDS ORDERED: ePHEDrine sulfate 50 MG/ML AMP IV PRN (08:24)
[2019-12-22] MEDS ORDERED: fentaNYL citrate 100 MCG/2 ML VIAL IV PRN (08:24)
[2019-12-22] MEDS ORDERED: ATROPINE SULFATE 0.1 MG/ML 10ML SYR IV PRN (08:24)
--- NOTE | 2019-12-22 09:17 | History & Physical Bridge Note ---
Date of Service December 22, 2019 History & Physical Bridge Note I have examined the patient, reviewed the History & Physical and in the interval since the performance of the History & Physical I have noted the following changes of clinical significance: she was going into and out of A-fib in the pre-op area. Anesthesia getting an EKG. Otherwise no changes noted. If Anesthesiologist gives permission, will proceed with surgery.
[2019-12-22] MEDS ORDERED: PROPOFOL IV EMULSION 10 MG/ML 20 ML VIAL IV ONE (11:22)
--- NOTE | 2019-12-22 11:55 | Communication Note ---
Date of Service: December 22, 2019 After examining patient, reviewing history, and obtaining consent, I was called by the holding area for tachycardia and chest tightness. On arrival, the patient was tachycardic in the 130s, irregular, and complained of some strange feeling in to her neck. During our conversation she was not dyspneic and she did flip back and forth between her irregular tachyarrhythmia and NSR in the 80s. BP remained stable and slightly elevated throughout. She did admit to being somewhat anxious leading up to the procedure. A 12 lead was obtained, but initially unable to capture the tachyarrhythmia. This was repeated and did catch a somewhat higher heart rate with frequent PACs. With deep breathing and calming exercises, the episodes of tachycardia became less frequent over the course of 10-15 minutes. At this point I did treat the patient with 5mg of metoporolol which brought her baseline HR in to the low 60s. I reviewed her history for any cardiac history or risk factors and she posessed only one: family history of a father with multiple heart attacks who after a large [place]. Over the next two hours after metoprolol, she experienced no further episodes of tachycardia or chest tightness. After a long discussion of the risks and benefits with both the surgeon and the patient, they elected to proceed with surgery. I recommended that the patient be placed on telemetry floor overnight after surgery and that at some point either as an inpatient or an outpatient, she may need a further cardiology evaluation to rule out any atherosclerotic or conduction disease of the heart. We will treat her as probable coronary disease and make every effort to tightly control heart rate and BP in the perioperative period.
[2019-12-22] MEDS ORDERED: ORTHO JOINT ANESTHETIC ONE (12:28)
[2019-12-22] MEDS ORDERED: LABETALOL HCL IV 5 MG/ML 20ML IV ONE (13:05)
--- NOTE | 2019-12-22 14:17 | Post Operative Brief Note ---
Immediate Post Op Note v1 Date of Surgery December 22, 2019 Pre & Post Diagnosis Operation Date: 12/22/19 09:25 Pre-Op Diagnosis: Right Hip Osteoarthritis Post-Op Diagnosis: Right Hip Osteoarthritis I identified the patient and participated in the time-out.: Yes Procedure Operation Date: 12/22/19 09:25 Actual Procedures p Right Total Hip Arthroplasty uncemented(Right) - Walter Giraldo MD Surgeon Walter Giraldo MD Data Designer REX Mcgovern PA-C Estimated Blood Loss 100 Findings Consistent with Post-Op Diagnosis Fluids 800 cc Specimens Femoral head Anesthesia Type Spinal MAC Complications none Disposition Accompanied Patient To Recovery: No Disposition: Recovery Room
[2019-12-22] MEDS ORDERED: TRAMADOL HCL 50 MG TABLET PO PRN (14:36)
[2019-12-22] MEDS ORDERED: DiphenhydrAMINE HCL 50 MG/ML VIAL IV PRN (14:36)
[2019-12-22] MEDS ORDERED: ALUMINUM/MAGNESIUM SUSP 30 ML UDC PO PRN (14:36)
[2019-12-22] MEDS ORDERED: MAGNESIUM HYDROXIDE SUSP 30 ML UDC PO PRN (14:36)
[2019-12-22] MEDS ORDERED: METOCLOPRAMIDE HCL INJ 5 MG/ML 2 ML VIAL IV PRN (14:36)
[2019-12-22] MEDS ORDERED: bisacodyL 10 MG SUPP PR PRN (14:36)
[2019-12-22] MEDS ORDERED: NALOXONE HCL 0.4 MG/1 ML VIAL/CARP IV PRN (14:36)
[2019-12-22] MEDS ORDERED: HYDROmorphone INJ 0.5 MG/0.5 ML SYR IV PRN (14:36)
--- NOTE | 2019-12-22 14:36 | Operative Report ---
Post Operative Report Pre & Post Diagnosis Operation Date: 12/22/19 09:25 Pre-Op Diagnosis: Right Hip Osteoarthritis Post-Op Diagnosis: Right Hip Osteoarthritis I identified the patient and participated in the time-out.: Yes Procedure Operation Date: 12/22/19 09:25 Actual Procedures p Right Total Hip Arthroplasty uncemented(Right) - Walter Giraldo MD Surgeon Walter Giraldo MD Cable Splicer Helper REX Mcgovern PA-C Estimated Blood Loss 100 Findings Consistent with Post-Op Diagnosis Specimens Right femoral head Complications none Disposition Accompanied Patient To Recovery: Yes Disposition: Recovery Room Description of Procedure I was present during the entire case assisting with retraction, wound closure and dressing application. Please see Dr. Giraldo procedure note for specifics of the case. I attest to the content of the Intraoperative Record and any orders documented therein. Any exceptions are noted below.
--- NOTE | 2019-12-22 14:39 | Operative Report ---
DATE OF OPERATION: 12/22/2019 PREOPERATIVE DIAGNOSIS: Right hip osteoarthritis. POSTOPERATIVE DIAGNOSIS: Right hip osteoarthritis. OPERATIONS PERFORMED: Right total hip arthroplasty. SURGEON: Walter Giraldo MD [employer] DRIVER: Satya Mcgovern PA-C ESTIMATED BLOOD LOSS: 100 mL. INTRAVENOUS FLUIDS: 800 mL crystalloid. SPECIMENS: Femoral head. COMPLICATIONS: None. IMPLANTS: 1. DePuy [place] Gription acetabular sector cup 52 mm outer diameter. 2. [place] cancellous bone screw 6.5 x 40 mm. 3. DePuy [place] Ultrex polyethylene liner neutral for a 32 mm femoral head. 4. DePuy [place] size 5 standard offset femoral stem. 5. Biolox delta 32 mm femoral head with a +9 offset. INDICATIONS: Ms. Virgen is a 69-year-old female with right hip pain that has been refractory to conservative management. X-rays demonstrate [id number] osteoarthritis. It is affecting her activities of daily living. I had a long discussion with her about the risks and benefits of surgery, alternatives to surgery and expected outcomes. After reviewing all these, she elected to proceed with surgery. All questions were answered. Informed consent was signed. OPERATIVE FINDINGS: Degenerative osteoarthritis of the right hip. A ceramic on polyethylene bearing total hip arthroplasty was performed through posterior approach. DESCRIPTION OF THE OPERATION: The patient was identified in the preoperative holding area where her surgical site was marked. She was given a spinal anesthetic and brought back to main operating room. She was placed on the operating room table and moved into the lateral decubitus position. Axillary roll was placed. All bony prominences were padded. Perioperative antibiotics were administered. Tranexamic acid 1 gram was given IV. She was prepped and draped in normal sterile fashion. Prior to incision, a multidisciplinary timeout was called. All in the room were in agreement. We began by making a 16 cm long incision for a posterior approach to the hip. We dissected down through the subcutaneous tissues to the level of the fascia. The fascia was incised in line with the incision. Charnley bow was placed. The trochanteric bursa was excised. The piriformis, short external rotators and quadratus femoris were dissected off the posterior aspect of the femur. Box cut was made in the capsule. Femoral head was dislocated. The center of the head lesser trochanter distance was measured at 57 mm. Femoral neck cut was then made at 12 mm, which was our preoperative template. A femoral head was then passed off as permanent specimen. Acetabulum was exposed. The labrum was sharply excised. Contents of cotyloid fossa were removed. There was a large medial osteophyte. We then began reaming. We reamed her up to a size 52 mm acetabular cup. This gave us good cancellous bleeding bone. We then impacted the 52 mm [place] Gription cup with 45 degrees of lateral opening and 25 degrees of anteversion. A 40 mm cancellous screw was placed up into the ilium. Excellent fixation was obtained. Next, the polyethylene liner for the cup was placed and impacted down into the shell. The locking mechanism was checked and it had engaged. We then exposed the femur. The lateral neck was removed with a box osteotome. The intramedullary guide was used followed by the lateralizing reamer. We reamed it up to a size 5 [place] stem. We broached all the way up to the size 5, which gave us excellent torsional stability. We then trialled her with a standard offset neck and a +5 head. Here, she was a little bit short, so we upsized her to +85 trial. Now, her center of head lesser trochanteric distance was equal at 57 compared to what she was before the neck cut. She was reduced and had excellent shuck test. Her leg lengths were symmetric. She was stable in extension and external rotation. She was stable in the sleeper position. At 90 degrees of hip flexion, she could be internally rotated 65 degrees before leaving out of the cup. I was very happy with the stability exam. Therefore, the trial components were removed. The femoral canal was irrigated and dried. The real size 5 standard offset stem was then impacted down into position. This sat at the same level of the broach. Therefore, the 32 mm +9 ceramic femoral head was opened up and gently impacted onto the trunnion. The hip was atraumatically reduced. We then irrigated out the hip with sterile Betadine solution. We then began to close. Prior to closing, the periarticular injection was placed. The piriformis and short external rotators and posterior hip capsule were repaired through the posterior aspect of the greater trochanter using #2 Vicryl sutures. The fascia was run with looped #1 PDS. The deep layer of the subcutaneous fat was closed with running #1 PDS. The deep dermal layer was closed with 2-0 Vicryl. The skin was closed with a ZipLine. A Silverlon dressing was placed followed by a compressive dressing. The patient was then rolled supine. Her leg lengths were rechecked and were symmetric. She was then placed into an abduction pillow and transferred to recovery room in stable condition. POSTOPERATIVE COURSE: The patient will be admitted overnight for pain control and monitoring. She will be weightbearing as tolerated with posterior hip precautions. She will be on aspirin for DVT prophylaxis. Plan on discharge home tomorrow. I attest to the content of the Intraoperative Record and any orders documented therein. Any exception s are noted below.
--- NOTE | 2019-12-22 15:08 | XRay Report ---
XR hip 1V RT w pelvis CLINICAL HISTORY: IN PACU - A/P PELVIS and LATERAL HIP COMPARISON: 12/02/2029 DISCUSSION: Total right hip arthroplasty has been placed in good position. Could contact between pros thetic and underlying bone. No evidence for acetabular protrusion. Expected postoperative soft tissue change IMPRESSION: Anatomic alignment posttotal right hip arthroplasty. ACT 112: Negative or not required by law. The above report was generated using voice recognition software. It may contain grammatical, syntax or spelling errors. Electronically signed by: Edmundo Dasilva M.D. 12/22/2019 3:07 PM
[2019-12-22] MEDS: CHECK SCOPOLAMINE PATCH PLACEMENT SCH ×2 (16:23→23:52)
[2019-12-22] MEDS: SODIUM CHLORIDE 0.9% 1000ML 1,000 ML IV SCH (16:53)
--- NOTE | 2019-12-22 16:57 | Anesthesiology Progress Note ---
Date of Service December 22, 2019 Anesthesia Post Procedure Vital Signs Vital Signs: Temp Pulse Pulse Resp BP Pulse Ox 12/22/19 16:32 36.3 C L 48 L 16 106/66 100 12/22/19 16:14 36.4 C L 12/22/19 16:07 59 L 20 101/66 100 12/22/19 15:40 36.5 C 57 L 16 104/68 100 12/22/19 15:15 36.7 C 58 L 11 L 116/55 L 100 12/22/19 15:05 50 L 11 L 115/61 100 12/22/19 14:55 56 L 16 103/62 100 12/22/19 14:45 51 L 11 L 103/65 100 12/22/19 14:35 36.3 C L 56 L 11 L 113/66 98 12/22/19 14:27 36.3 C L 59 L 12 106/66 98 12/22/19 09:50 63 18 122/67 97 12/22/19 09:45 62 19 137/79 96 12/22/19 09:41 66 19 132/102 H 98 12/22/19 09:36 66 18 143/56 H 99 12/22/19 09:30 62 17 138/77 97 12/22/19 09:25 63 18 136/72 99 12/22/19 09:21 65 16 138/92 99 12/22/19 08:45 126 H 24 150/91 H 100 12/22/19 07:30 36.5 C 76 20 140/73 98 Pain Intensity Right Hip: Pain Intensity: 0 Transfer of Care Handoff Completed per policy Notes Mental Status: alert / awake / arousable Patient Amnestic to Procedure: Yes Nausea / Vomiting: adequately controlled Pain: adequately controlled Airway Patency, RR, SpO2: stable & adequate BP & HR: stable & adequate Hydration State: stable & adequate Neuraxial Anesthesia: was administered and sensory block is resolving Anesthetic Complications: no major complications apparent and Pt Satisfied with anesthetic care
[2019-12-22] MEDS: KETOROLAC TROMETHAMINE 15 MG/ML VIAL IV SCH ×2 (17:50→22:01)
[2019-12-22] MEDS: CEFAZOLIN 2000MG 2,000 MG/15 ML SYR IV SCH (19:29)
[2019-12-22] MEDS ORDERED: TRANEXAMIC ACID / 0.7% NACL 1,000 MG/100 ML BAG IV SCH (20:00)
[2019-12-22] MEDS ORDERED: SENNA 8.6 MG TAB PO SCH (21:00)
[2019-12-22] MEDS: ASPIRIN 81 MG ECTAB PO SCH (21:18)
[2019-12-22] MEDS: DOCUSATE SODIUM 100 MG CAP PO SCH (21:18)
[2019-12-22] MEDS: ACETAMINOPHEN 500 MG TAB PO SCH (21:18)
--- NOTE | 2019-12-23 00:19 | Electrocardiogram Report ---
Test Reason : Blood Pressure : / mmHG Vent. Rate : 073 BPM Atrial Rate : 073 BPM P-R Int : 148 ms QRS Dur : 090 ms QT Int : 424 ms P-R-T Axes : 085 066 097 degrees QTc Int : 467 ms Normal sinus rhythm Biatrial enlargement Cannot rule out Anterior infarct , age undetermined Abnormal ECG When compared with ECG of 02-DEC-2019 14:55, No significant change was found Confirmed by Diogenes Pope ([id number]) on 12/23/2019 12:19:05 AM Referred By: Walter Giraldo Confirmed By:Diogenes Pope
[2019-12-23] MEDS: CEFAZOLIN 2000MG 2,000 MG/15 ML SYR IV SCH (02:57)
[2019-12-23] MEDS: SODIUM CHLORIDE 0.9% 1000ML 1,000 ML IV SCH (03:29)
[2019-12-23] MEDS: KETOROLAC TROMETHAMINE 15 MG/ML VIAL IV SCH ×2 (05:17→10:16)
[2019-12-23] MEDS: ACETAMINOPHEN 500 MG TAB PO SCH ×2 (05:48→13:08)
--- NOTE | 2019-12-23 05:54 | Electrocardiogram Report ---
Test Reason : Blood Pressure : / mmHG Vent. Rate : 087 BPM Atrial Rate : 087 BPM P-R Int : 154 ms QRS Dur : 086 ms QT Int : 414 ms P-R-T Axes : 078 069 084 degrees QTc Int : 498 ms Sinus rhythm with frequent Premature atrial complexes Possible Left atrial enlargement Cannot rule out Anterior infarct Prolonged QT Abnormal ECG When compared with ECG of 22-DEC-2019 08:57, Premature atrial complexes are now Present Confirmed by Diogenes Pope ([id number]) on 12/23/2019 5:54:34 AM Referred By: Walter Giraldo Confirmed By:Diogenes Pope
[2019-12-23 06:17] LABS: Hematocrit (blood only) 33.4 % (37-47); Hemoglobin 11.1 g/dL (12.0-16.0); Immature Granulocytes # (auto) 0.03 K/uL (0.00-0.02); Immature Granulocytes % (auto) 0.2 %; Lymphocytes # (auto) 1.06 K/uL (1.2-3.4); Lymphocytes % (auto) 7.7 %; Mean Corpuscular Hemoglobin 29.3 pg (25-34); Mean Corpuscular Hgb Conc 33.2 g/dL (32-36); Mean Corpuscular Volume 88.1 fL (80-100); Monocytes # (auto) 0.74 K/uL (0.11-0.59); Monocytes % (auto) 5.4 %; Neutrophils # (auto) 11.94 K/uL (1.4-6.5); Neutrophils % (auto) 86.7 %; Platelet Count 229 K/uL (130-400); RDW Standard Deviation 41.8 fL (36.4-46.3); Red Blood Count 3.79 M/uL (4.2-5.4); White Blood Count 13.77 K/uL (4.8-10.8)
[2019-12-23 06:50] LABS: BUN Creatinine Ratio 22.2 (10-20); Calcium 8.5 mg/dl (8.5-10.1); Est GFR (African American) 99.3; Est GFR (Non-African American) 85.7; Potassium 3.9 mmol/L (3.5-5.1)
--- NOTE | 2019-12-23 07:59 | Anesthesiology Progress Note ---
Date of Service December 23, 2019 Anesthesia Post Procedure Vital Signs Vital Signs: Temp Pulse Pulse Pulse Pulse Resp BP 12/23/19 06:54 36.6 C 68 16 12/23/19 02:58 36.6 C 67 16 111/64 12/22/19 23:49 36.6 C 86 16 12/22/19 22:32 36.7 C 71 16 104/64 12/22/19 18:36 36.4 C L 70 16 100/64 12/22/19 17:35 36.6 C 65 18 112/71 12/22/19 16:32 36.3 C L 48 L 16 106/66 12/22/19 16:14 36.4 C L 12/22/19 16:07 59 L 20 101/66 12/22/19 15:40 36.5 C 57 L 16 104/68 12/22/19 15:15 36.7 C 58 L 11 L 116/55 L 12/22/19 15:05 50 L 11 L 115/61 12/22/19 14:55 56 L 16 103/62 12/22/19 14:45 51 L 11 L 103/65 12/22/19 14:35 36.3 C L 56 L 11 L 113/66 12/22/19 14:27 36.3 C L 59 L 12 106/66 12/22/19 09:50 63 18 122/67 12/22/19 09:45 62 19 137/79 12/22/19 09:41 66 19 132/102 H 12/22/19 09:36 66 18 143/56 H 12/22/19 09:30 62 17 138/77 12/22/19 09:25 63 18 136/72 12/22/19 09:21 65 16 138/92 12/22/19 08:45 126 H 24 150/91 H BP Pulse Ox 12/23/19 06:54 117/66 97 12/23/19 02:58 97 12/22/19 23:49 122/70 98 12/22/19 22:32 96 12/22/19 18:36 98 12/22/19 17:35 100 12/22/19 16:32 100 12/22/19 16:14 12/22/19 16:07 100 12/22/19 15:40 100 12/22/19 15:15 100 12/22/19 15:05 100 12/22/19 14:55 100 12/22/19 14:45 100 12/22/19 14:35 98 12/22/19 14:27 98 12/22/19 09:50 97 12/22/19 09:45 96 12/22/19 09:41 98 12/22/19 09:36 99 12/22/19 09:30 97 12/22/19 09:25 99 12/22/19 09:21 99 12/22/19 08:45 100 Pain Intensity Right Hip: Pain Intensity: 0 Notes Mental Status: alert / awake / arousable and participated in evaluation Patient Amnestic to Procedure: Yes Nausea / Vomiting: adequately controlled Pain: adequately controlled Airway Patency, RR, SpO2: stable & adequate BP & HR: stable & adequate Hydration State: stable & adequate Neuraxial Anesthesia: was administered and sensory block resolved Anesthetic Complications: no major complications apparent and Pt Satisfied with anesthetic care
[2019-12-23] MEDS ORDERED: dexAMETHasone 4 MG TAB PO SCH (08:00)
[2019-12-23] MEDS: CHECK SCOPOLAMINE PATCH PLACEMENT SCH (08:29)
[2019-12-23] MEDS: ASPIRIN 81 MG ECTAB PO SCH (08:33)
[2019-12-23] MEDS: DOCUSATE SODIUM 100 MG CAP PO SCH (08:33)
[2019-12-23] MEDS ORDERED: MULTIVITAMIN TAB PO SCH (09:00)
[2019-12-23] MEDS ORDERED: FLUTICASONE PROPIONATE NA SPR 16 GM BTL SCH (09:00)
--- NOTE | 2019-12-23 11:45 | Discharge Summary ---
Date of Service December 23, 2019 Admission HPI Per Admitting Provider History of present illness: This 69-year-old female presents the clinic today for preoperative history and physical. Patient complains of 1 1/2-year history of persistent right hip pain that is become worse over the past few months. She states that the pain prevents her from walking her dog or walking on the beach during her most recent vacation. Patient states she has tried conservative measures over the past year without alleviation of her pain. She localizes most of her pain to the right groin. Symptoms are exacerbated with her activity levels. Patient has been attending physical therapy but states that it has not helped alleviate her pain. Allergies: Darvocet-N 100, Percocet 03/04/2025, codeine, tumeric, mustard, dust mites, grass, bee stings Medications: albuterol CFC free 90 mcg/inh MDI, 1 puff, inhaled, qid, PRN Ambien, See Instructions, PRN cholecalciferol 1000 intl units oral tablet, 1000 Int_Unit= 1 tab, PO, Daily ciclopirox 8% topical solution, 1 appl, topical, Daily, 3 refills Fish Oil oral capsule, PO, Daily Flonase, 1 spray, intranasal, Daily Metamucil 3.4 gm/11 gm oral powder for reconstitution, See Instructions naproxen 500 mg oral tablet, 500 mg= 1 tab, PO, bid, 1 refills, Not taking tretinoin 0.1% topical cream, 1 appl, topical, qhs, 3 refills ZyrTEC-D 5 mg-120 mg oral tablet, extended release, 1 tab, PO, bid, PRN Social history: Patient denies a history of tobacco alcohol or illicit drug use. . Radiographic imaging: X-rays of the right hip show severe osteoarthritis. There is no sign of dislocation subluxation or fracture. There was note of clips in the pelvic area consistent with prior surgery. Admission Exam Per Admitting Provider Skin: Patient skin is normal appearance with no open skin lesions or discharge. Eyes: Pupils are equal and reactive to light accommodating, extraocular movements are intact. Throat: Posterior oropharynx is clear with absence of edema erythema or exudate. Cardiovascular exam: Patient has a grade 1/6 holosystolic murmur heard best over the left lower sternal border. She had no gallops. She had a regular rate and rhythm. Lung exam: Auscultation of lung abdi were revealed clear breath sounds throughout with no wheezing rales or rhonchi. Abdomen: Nonobese nontender nondistended with normoactive bowel sounds. Extremities: Right hip; hip flexion was to 135 degrees internal rotation to -5 degrees external rotation to 20 degrees. Stinchfield test was negative. Straight leg raise test was negative. Logroll test was negative. Eileen test was 4 fists with referred pain to the groin. Patient had tenderness palpation of the anterior groin. There was crepitation with range of motion. She was neurovascularly intact in the right lower extremity. She had no tenderness to palpation of the greater trochanter. Passive Abduction and adduction cause referred pain to the groin. Neurological exam: Cranial nerves II through XII intact with no motor or sensory deficit. General/psychological exam: Patient is alert and oriented x3 with appropriate hygiene. Principal Diagnosis Right hip osteoarthritis Discharge Exam Right Hip: Dressing clean, dry and intact. Able to perform SLRT. Able to easily transition from chair to standing position. Quad strength 3/5. Able to actively dorsi/plantar flex foot. Neg log roll. No pain with light passive internal/external hip rotation. Calf soft and supple. NV intact. Discharge Data Allergies Allergy/AdvReac Type Severity Reaction Status Date / Time codeine Allergy Unknown RASH Verified 12/22/19 08:02 grass pollen-perennial rye, Allergy Unknown ALLERGY Verified 12/22/19 08:02 standar TESTING levocetirizine Allergy Unknown ITCHING Verified 12/22/19 08:02 ALL OVER mustard Allergy Unknown ANAPHYLAXIS Verified 12/22/19 08:02 naproxen Allergy Unknown RED Verified 12/22/19 08:02 PURPLISH SPOTS ON LEG, LOOKS LIKE BROKEN BLOOD VESSELS oxycodone [From Percocet] Allergy Unknown Rash Verified 12/22/19 08:02 propoxyphene Allergy Unknown RASH AND Verified 12/22/19 08:02 VOMITTING silver Allergy Unknown RASH, ITCHY Verified 12/22/19 08:02 silver nitrate Allergy Unknown RASH, ITCHY Verified 12/22/19 08:02 sodium citrate Allergy Unknown SKIN Verified 12/22/19 08:02 REDNESS AND CHEST CONGESTION sodium metabisulfite Allergy Unknown SKIN Verified 12/22/19 08:02 REDNESS AND CHEST CONGESTION sodium sulfate Allergy Unknown SKIN Verified 12/22/19 08:02 REDNESS AND CHEST CONGESTION turmeric Allergy Unknown ANAPHYLAXIS Verified 12/22/19 08:02 Bee sting Allergy Severe BRILLIANT Uncoded 12/22/19 08:02 RED, AND BP DROPPED DUST MITES Allergy Unknown CONGESTION Uncoded 12/22/19 08:02 Consultations 12/23/19 08:00 Consult Case Management - Discharge Planning Routine Procedures Performed Operation Date: 12/22/19 09:25 Actual Procedures p Right Total Hip Arthroplasty uncemented(Right) - Walter Giraldo MD Hospital Course (1) S/P total hip arthroplasty: Patient did very well overnight. She has no pain. She did very well with PT/OT. She thinks that her issues in Pre-Op yesterday were precipitated by her being present and worried. She states that she has normal heart rhythm, pulse rated, O2 sat and BP since procedure. Patient is ready for discharge home with home health services. Total hip precautions. PT/OT WBAT with walker assistance ice with EZ wrap DVT prophy with Aspirin and TEDs Abduction pillow use x 6 wks Pain control with PO meds Follow up at [facility] as scheduled With [facility] call Total Time Total Time Spent Total Time Spent (In Minutes): 25 mins Total Time Includes: Examination of the Patient, Discharge Planning, Medication Reconciliation and Communication With Other Providers Discharge Plan Discharge Items Patient Disposition: Home - Home Health Services Reason For Visit: Right Hip Osteoarthritis Discharge Diagnosis: Right Hip Osteoarthritis Activity: As commented below Lifting: None Bathing: Keep incision dry Bathing Comment: May shower tomorrow Sexual Activity: Wait until after follow-up appointment Exercise/Sports: Wait until after follow-up appointment Driving/Machine Use: No driving until cleared by campaign specialist Weightbearing: Right weightbearing Weightbearing Comment: as tolerated with walker assistance Non-emergency contact: Primary Care Provider Call non-emergency contact if: you have any medication questions, your pain is not controlled, your temperature is above 101.5, your wound has increased drainage and your wound pain has increased Follow-up/Referrals: Caitlin Ramesh MD [Primary Care Provider] - Diet: Regular Addtl Attending Provider Instructions: Post-operative Instructions Dear Patient and Family/Friends, Before you are discharged from the hospital, it is important to know what to expect when you get home after surgery. To that end, we have created this sheet of discharge instructions which covers many commonly asked questions. Make sure you go through this sheet in its entirety with your nurse before you are discharged. Please note that we will go over the specifics of your surgery and recovery when you return for your first post-operative visit. Sincerely, Dr. Giraldo Medications 1. Tramadol 50 mg: take 1-2 tabs by mouth every 4-6 hours for pain control. 30 Tablets will be sent to your pharmacy for grain picker after hospital discharge. 2. Diclofenac Sodium 75 mg: take 1 tab twice daily for 30 days post operatively for pain and inflammation relief. This will be sent to your pharmacy for grain picker with 1 refill. 3. Aspirin 81 mg: take 1 tablet twice daily for 6 weeks post operatively for blood clot prevention. Please purchase this medication. 4. Extra Strength Tylenol 500mg: take 2 tabs every 6-8 hours for pain control 30 days post operatively. Please purchase this medication. Pain Expect to be in a fair amount of pain after surgery. Remember, our goal is not to eliminate your pain, but to make it tolerable. It is a good idea to stay ahead of your pain by taking the medications you were prescribed once you get home. Typically, the pain starts improving 3-7 days after surgery. You should start weaning off the narcotic pain medication (oxycodone, hydrocodone, hydromorphone, morphine) as soon as your pain improves. Please call our office if your pain is not adequately controlled. Ice Ice your operative site at least 5 times a day for 15-30 minutes at a time. Make sure you have a thin cloth between the ice or cooling unit and your skin to prevent douglas bite. This is especially important if you received a nerve block. Continue icing your operative site for the first 5-7 days after surgery, then as needed. Diet/Nausea/Vomiting Start by drinking clear liquids and eating crackers. If you can tolerate this, then you may resume your normal diet. If you feel nauseated or vomit, take Zofran/ondansetron (if prescribed). Please call our office if you have intractable nausea or vomiting, or, if after hours, you may go to the Emergency Room for help. Constipation Constipation is a common side effect of narcotic pain medication. If you have not had a bowel movement within 2 days after surgery, we recommend purchasing an over the counter laxative such as Milk of Magnesia, Dulcolax, or Miralax from a local pharmacy, and taking it as instructed. Call our clinic if any questions. Nerve block The anesthesia team sometimes places a nerve block to help with post-operative pain control. This results in significant numbness and inability to move the extremity. The nerve block usually wears off in 8-12 hours, but sometimes can last up to 24 hours. Please call our office if you are still unable to move your extremity after 24 hours, unless you received a pain pump to take home. Nerve blocks typically wear off quickly, so start taking pain medication as soon as you start feeling soreness near your surgical site. Weight bearing and Range of Motion. Do not bear any weight through your operative extremity immediately after surgery. If you had upper extremity surgery, do not lift anything with that arm. If you are in a knee brace, keep it locked in place until your follow-up. We will discuss your weight bearing, range of motion, and lifting restrictions in detail at your first post-operative appointment. Continuous Passive Motion (CPM) Machine If you were prescribed a CPM machine, it will start after your first post- operative appointment, at which time we will give you instructions on the range of motion settings and duration of treatment Physical therapy You will be given a prescription for physical therapy or occupational therapy at your first post-operative appointment. Typically, patients start therapy within 1 week of surgery Wound care and showering We will inspect your wound at your first post-operative visit, and may do a dressing change at that time. Most patients will be in a water-proof dressing that is removed 14 days after surgery. It is normal to see some dried blood on the dressing. Do not remove your dressing, paper strips or sutures yourself unless you are given permission. Showering is allowed the day after surgery. Do not scrub or remove any dressings. The wound should not be submerged underwater (i.e. in a bathtub or pool) until 4 weeks after surgery NAOMY stockings If you were given white stockings, these are to be worn at all times except to shower (on both legs) for the first 2 weeks after surgery. Driving You may not drive while taking narcotic pain medication or while in a cast, splint, sling or brace. You, the patient, need to make the final determination about when you are safe to drive, however, the earliest you may consider driving after surgery is below: Hand/Wrist/Elbow Surgery: 3 days Shoulder Surgery: 2 weeks Hip,/Knee/Ankle Surgery: 4 weeks Fracture repair: 6 weeks Return to Work Your return to work depends on what surgery was done and what type of work you do. Please bring any paperwork your employer needs completed to your first post-operative visit. Also, bring a description of your job duties, as this helps us to understand what risks you may face at work. Travel Avoid long distance travel (greater than 1 hour) in airplanes and cars for the first 6 weeks after surgery. If you must travel, you need to have a Doppler ultrasound done before you travel to rule out a blood clot in your legs. Follow-up You should have a follow-up appointment already scheduled 1-2 days after surgery. If not, please contact our office to make this appointment before you leave the hospital. When to call the office It is normal to have swelling and bruising in the limb that was operated on. This will improve with time. It is also normal to have fevers for the first 2 days after surgery. Reasons you should call your doctor include: Uncontrolled pain; Nausea, vomiting, or constipation that does not improve with medication; Fevers over 101.5, chills, sweats; Drainage or bleeding from the wound; Foul odor; Spreading areas of redness; Any other concerns Pending Studies at Discharge: No Stand-Alone Forms: My [facility] Medications and DC Order Prescriptions: New tramadol 50 mg tablet 50 mg PO Q6H Qty: 30 RF: 0 diclofenac sodium 75 mg tablet,delayed release (DR/EC) 75 mg PO Q12H 30 Days Qty: 60 RF: 1 Continued artificial tears(hypromellose) 0.3 % drops 1 drp OP UD RF: 0 cetirizine-pseudoephedrine [Zyrtec-D] 5-120 mg tablet extended release 12 hr 1 tab PO BID RF: 0 tretinoin microspheres 0.1 % gel 1 appln topical HS Qty: 20 RF: 0 albuterol sulfate 90 mcg/actuation HFA aerosol inhaler 2 puffs inhalation Q4H PRN (Reason: SOB) Qty: 1 RF: 0 ciclopirox 8 % solution 1 appln topical DAILY Qty: 1 RF: 0 fluticasone propionate 50 mcg/actuation spray,suspension 1 sprays intranasal BID Qty: 3 RF: 0 epinephrine 0.3 mg/0.3 mL auto-injector 0.3 mg IM USEASDIRECTD PRN (Reason: anaphylaxis) Qty: 2 RF: 0 zolpidem 10 mg tablet 5 mg PO HS PRN (Reason: sleep) RF: 0 Centrum Silver Women 8 mg iron-400 mcg-300 mcg Tablet 1 tab PO DAILY RF: 0 Metamucil 3.4 gram/5.4 gram Powder 1 tbsp PO DAILY RF: 0 Discharge Orders: Discharge Order (Routine); Ordered 12/23/19 Ordered By: Jasson Mcgovern Admission Data Admit Date/Time: 12/22/19 14:36 Attending Provider: Walter Giraldo Admit Provider: Walter Giraldo Primary Care Provider: Caitlin Ramesh V.
--- NOTE | 2019-12-23 11:45 | Orthopedic Progress Note ---
Date of Service December 23, 2019 Assessment & Plan (1) S/P total hip arthroplasty: Total hip precautions. PT/OT WBAT with walker assistance ice with EZ wrap DVT prophy with Aspirin and TEDs Abduction pillow use x 6 wks Pain control with PO meds Follow up at [facility] as scheduled With questsion call Admission and Anticipated Discharge Date Admission Date: December 22, 2019 Subjective This 69 yo F is day 1 s/p Right total hip arthroplasty. She did very well overnight and has no pain at present. She states that she completed PT/OT this AM and is ready for discharge home with home health services. Patient denies CP, SOB, nausea, vomiting, fever, chills, sweats, lethargy or numbness/tingling in the Right LE. Review of Systems Review of Systems: All systems reviewed & are unremarkable except as noted in HPI & below Physical Exam Physical Exam: Right Hip: Dressing clean, dry and intact. Able to perform SLRT. Able to easily transition from chair to standing position. Quad strength 3/5. Able to actively dorsi/plantar flex foot. Neg log roll. No pain with light passive internal/external hip rotation. Calf soft and supple. NV intact. Results & Data ([facility]) Vital Signs (Past 12 Hours) Vital Signs Temp Pulse Pulse Resp BP BP Pulse Ox 12/23/19 11:07 36.8 C 72 16 117/66 97 12/23/19 06:54 36.6 C 68 16 117/66 97 12/23/19 02:58 36.6 C 67 16 111/64 97 12/22/19 23:49 36.6 C 86 16 122/70 98 Laboratory Results 12/23/19 12/23/19 Range/Units 06:02 06:02 WBC 13.77 H (4.8-10.8) K/uL RBC 3.79 L (4.2-5.4) M/uL Hgb 11.1 L (12.0-16.0) g/dL Hct 33.4 L (37-47) % MCV 88.1 (80-100) fL MCH 29.3 (25-34) pg MCHC 33.2 (32-36) g/dL RDW Std Deviation 41.8 (36.4-46.3) fL RDW Coeff of Sejal 13.0 (11.5-14.5) % Plt Count 229 (130-400) K/uL MPV 10.0 (7.4-10.4) fL Immature Gran % (Auto) 0.2 % Neut % (Auto) 86.7 % Lymph % (Auto) 7.7 % [place] % (Auto) 5.4 % Eos % (Auto) 0.0 % Baso % (Auto) 0.0 % Immature Gran # (Auto) 0.03 H (0.00-0.02) K/uL Neut # (Auto) 11.94 H (1.4-6.5) K/uL Lymph # (Auto) 1.06 L (1.2-3.4) K/uL [place] # (Auto) 0.74 H (0.11-0.59) K/uL Eos # (Auto) 0.00 (0-0.5) K/uL Baso # (Auto) 0.00 (0-0.2) K/uL Sodium 138 (136-145) mmol/L Potassium 3.9 (3.5-5.1) mmol/L Chloride 108 H (98-107) mmol/L Carbon Dioxide 25 (21-32) mmol/L Anion Gap 5.0 (3-11) BUN 16 (7-18) mg/dl Creatinine 0.71 (0.6-1.2) mg/dl Est Cr Clr Drug Dosing 68.0 ml/min Est GFR ( Amer) 99.3 Est GFR (Non-Af Amer) 85.7 BUN/Creatinine Ratio 22.2 H (10-20) Glucose 145 H (70-99) mg/dl Calcium 8.5 (8.5-10.1) mg/dl
== END 2019-12-23 14:10 | disposition home health service (06) | DRG 470 ==
LOC: ASU 07:10 → 3E 14:36

== ENCOUNTER 2022-05-20 17:37 | Observation (INO) ==
[2022-05-20] MEDS ORDERED: dilTIAZem HCl 5 MG/ML 5 ML VIAL IV STA (17:49)
[2022-05-20] MEDS ORDERED: MAGNESIUM SULFATE / D5W 1 GM/100 ML BAG IV STA (17:49)
--- NOTE | 2022-05-20 17:55 | Emergency Department Note ---
Impression & Plan Atrial fibrillation with rapid ventricular response, Episode of generalized weakness, Abnormal EKG ED Provider Note NAME: CHAD URIOSTEGUI AGE: 72 SEX: F : 1950 ARRIVES VIA: Ambulance INFORMANT: Patient, EMS ED PROVIDER(S): Yomi Cash DO CHIEF COMPLAINT: Generalized weakness HPI: The patient is a 72-year-old female who presented to the emergency department by ambulance. The patient has a history of breast cancer. She states that over the last few days she is felt "off". She describes it as more of a generalized weakness. She is also had some palpitations. The patient is currently moving from the [facility]. She did live in [place]. She went to see her family doctor today and in the office was found to have a very fast heart rate and was referred to the emergency department. The patient denies having any fever or cough. She denies having any chest pain or difficulty breathing. She denies having any lower extremity swelling. She denies having any headaches. The patient does not have a history of irregular heartbeat. She does have a history of thyroid problems in the past. She states otherwise has been compliant with her outpatient medications. She feels that she has been well-hydrated. ROS: See above HPI for pertinent positives & negatives. A total of 10 systems reviewed and were otherwise negative. PAST MEDICAL HISTORY: See Below PAST SURGICAL HISTORY: See Below FAMILY HISTORY: See Below SOCIAL HISTORY: See Below HOME MEDICATIONS: See Below ALLERGIES: See Below VITALS: See Below PHYSICAL EXAMINATION: GENERAL: Patient is awake alert in no acute distress patient is resting comfortably and showing no signs of anxiety EYES: The conjunctivae are clear. The pupils are round and reactive. EARS, NOSE, MOUTH AND THROAT: The nose is without any evidence of any deformity. Mucous membranes are moist. Tongue is midline. NECK: The neck is nontender and supple. RESPIRATORY: Normal respiratory effort is noted there is no evidence of wheezing rhonchi or rales CARDIOVASCULAR: Tachycardic and irregular heart sounds are noted auscultation. There is no definite murmur. GASTROINTESTINAL: The abdomen is soft. Abdomen is nontender. MUSCULOSKELETAL/EXTREMITIES: There is no evidence of gross deformity full range of motion is noted in the hips and shoulders. SKIN: There is no obvious evidence of any rash. There are no petechiae, pallor or cyanosis noted. NEUROLOGIC: Patient is awake alert and oriented x3. Agent Based Modeler strength was symmetric. The patient is able to hold each leg off the bed for greater than 5 seconds. MEDICAL DECISION MAKING: The patient is a 72-year-old female who presented to the emergency department for an evaluation. She was seen by her primary care physician and was found to have a very fast heart rate. She had a twelve-lead EKG obtained which showed atrial fibrillation. This would be a new diagnosis for the patient. The patient denies having any chest pain at this time but I do feel she is very symptomatic with her atrial fibrillation. She was treated with IV fluids IV magnesium and IV Cardizem. On reevaluation her pulse had slowed and she was feeling much better. She had other complaints of left leg issues which could be related to a neurologic process. CT of the head was obtained and shows no acute disease. I discussed the patient's laboratory and radiographic studies with her as well as her overall condition. She likely require anticoagulation. I discussed her condition with the on-call [facility] hospitalist. They will evaluate the patient in the emergency department for further management and disposition. Triage Nursing notes reviewed. Prior medical records reviewed Vital Signs: reviewed and remarkable for tachycardia. Differential diagnosis: Premature contractions, electrolyte abnormality, cardiac dysrhythmia, thyroid dysfunction, pulmonary embolism, infection, gastrointestinal, as well as other pathologies. ER treatment provided: See below Diagnostics interpreted by me: ECG: EKG was obtained in the emergency department. My interpretation is atrial fibrillation with rapid ventricular response at 120 bpm. No PVCs were noted. Nonspecific ST segment abnormalities were noted. This was compared to a tracing from February 23, 2022. Atrial fibrillation has replaced sinus rhythm. Multiple EKGs were sent from the outpatient office. They do show atrial fibrillation with a rapid ventricular response at 121 bpm. It is similar to the tracing obtained in the emergency department. It also shows changes compared to the previous tracing. Cardiac Monitoring: An order was placed for continuous cardiac monitoring. The monitor shows a rate of 84 bpm with atrial fibrillation. Laboratory studies: As stated above and show below. Imaging studies: See below Consultation(s): I discussed this case with Dr. Talley ED COURSE: Procedures: none Critical Care: I have personally spent greater than 45 minutes of critical care time in the direct management of this patient. This includes bedside care, interpretation of diagnostic studies, and testing, discussion with consultants, patient, and family members, and other required patient management activities. This 45 minutes is in excess of all separately billable procedures. Past Med/Surg History Medical History Acid reflux UNSURE IF DEFINITIVE DX Arthritis LUMBAR Asthma PT REPORTS "MAYBE SITUATIONAL ASTHMA" Basal cell carcinoma of skin of face HX Borderline diabetes ? Chronic sinusitis Deviated nasal septum Dyslipidemia Elevated BUN RECENT LABS, BORDERLINE ELEVATED PER PT History of breast cancer HX MASTECTOMY History of cataract R&L History of diverticulitis Hx antineoplastic chemotherapy 2005 WITH RADIATION FOR BREAST CANCER Hx of radiation therapy FOR BREAST CANCER REOCCURENCE. Multiple thyroid nodules Osteopenia Poor historian Subclinical hypothyroidism Uterine leiomyoma HX Surgical History H/O tooth extraction History of arthroplasty of right hip 12/22/2019 History of biopsy THYROID History of breast surgery HX LEFT SILICONE IMPLANT AND REMOVED HX LEFT SILICONE IMPLANT (CURRENT IN PLACE) History of surgical removal of meniscus of knee History of total hip replacement DEC 2019 [facility] (PT REPORTS "HEART WEIRD" AND SURGERY WAS POST PONED A FEW HOURS) Nausea and vomiting after administration of anesthetic agent S/P abdominoplasty HX S/P breast biopsy HX S/P breast reconstruction HX S/P cataract surgery HX R&L S/P colonoscopy S/P hernia repair HX S/P mastectomy HX OF left 1989, right 1990 S/P YAG capsulotomy HX Family History Mother Bipolar disorder Osteoarthritis Breast cancer Hypertension Stroke Father Alzheimer disease Hypertension Grandfather (Paternal) Cardiac disorder Aunt Breast cancer maternal Colorectal cancer maternal Asthma paternal Grandmother Family history of diabetes mellitus Denies family history of Ovarian cancer Social History Smoking Status: Never smoker Second Hand Exposure: No; Hx Alcohol Use: No Hx Substance Use: No Preferred Language: Chinese Communication Ability: Effective Visual Impairment: No Limitations Compounder Sterile Products Required: No Beliefs That Will Affect Care: None marital status: Current Living Situation: Spouse Other Information That Helps Us Care for You: No Feels Safe at Home: Yes Safety Concerns: Feels Safe At This Time Seatbelt Use: always Assistive Devices: Glasses Allergies Allergies Allergy/AdvReac Type Severity Reaction Status Date / Time doxycycline Allergy Severe FACIAL Verified 05/20/22 16:13 SWELLING, POSSIBLE REJI SYNDROME. hornet venom Allergy Severe Anaphylaxis Verified 05/20/22 16:13 mustard Allergy Severe ANAPHYLAXIS Verified 05/20/22 16:13 turmeric Allergy Severe ANAPHYLAXIS Verified 05/20/22 16:13 codeine Allergy Intermediate RASH Verified 05/20/22 16:13 levocetirizine Allergy Intermediate ITCHING Verified 05/20/22 16:13 ALL OVER naproxen Allergy Intermediate RED Verified 05/20/22 16:13 PURPLISH SPOTS ON LEG, LOOKS LIKE BROKEN BLOOD VESSELS oxycodone [From Percocet] Allergy Intermediate Rash Verified 05/20/22 16:13 propoxyphene Allergy Intermediate RASH AND Verified 05/20/22 16:13 VOMITTING silver Allergy Intermediate RASH, ITCHY Verified 05/20/22 16:13 silver nitrate Allergy Intermediate RASH, ITCHY Verified 05/20/22 16:13 sodium citrate Allergy Intermediate SKIN Verified 05/20/22 16:13 REDNESS AND CHEST CONGESTION sodium metabisulfite Allergy Intermediate SKIN Verified 05/20/22 16:13 REDNESS AND CHEST CONGESTION sodium sulfate Allergy Intermediate SKIN Verified 05/20/22 16:13 REDNESS AND CHEST CONGESTION grass pollen-perennial rye, Allergy Unknown ALLERGY Verified 05/20/22 16:13 standar TESTING cumin AdvReac Severe Anaphylaxis Verified 05/20/22 16:13 azelastine AdvReac Intermediate "ERATIC Verified 05/20/22 16:13 HEART BEAT" pseudoephedrine AdvReac Intermediate "ERATIC Verified 05/20/22 [facility]" Bee sting Allergy Severe BRILLIANT Uncoded 05/20/22 16:13 RED, AND BP DROPPED DUST MITES Allergy Mild CONGESTION Uncoded 05/20/22 16:13 Home Meds Home Medications Medication Instructions Recorded Confirmed artificial tears(hypromellose) 0.3 1 drp ophthalmic (eye) DIRECTED 08/08/19 05/20/22 % eye drops PRN Dry Eyes multivit with 1 tab PO DAILY 12/22/19 05/20/22 [id number]-mrnw-TP-lutein 8 mg iron-400 mcg-300 mcg tablet (Centrum Silver Women) psyllium husk 3.4 gram/5.4 gram 1 tsp PO DAILY 12/22/19 05/20/22 oral powder (Metamucil) ascorbic acid (vitamin C) 500 mg 500 mg PO DAILY 02/23/22 05/20/22 tablet (Vitamin C) azelastine 137 mcg (0.1 %) nasal 1 spray intranasal DIRECTED PRN 02/23/22 0 05/20/22 spray aerosol Nasal Congestion cholecalciferol (vitamin D3) 50 50 mcg PO DAILY 02/23/22 05/20/22 mcg (2,000 unit) capsule (Vitamin D3) epinephrine 0.3 mg/0.3 mL 0.3 mg IM DIRECTED PRN 02/23/22 05/20/22 injection, auto-injector anaphylaxis Bio Complete 3 2 tab PO AMPM 05/20/22 05/20/22 cetirizine 5 mg-pseudoephedrine ER 1 tab PO DAILY 05/20/22 05/20/22 120 mg tablet,extended release,12hr (Zyrtec-D) Previous Rx's Medication Instructions Recorded tretinoin microspheres 0.1 % 1 appln topical HS Basa cell 08/09/19 topical gel carcinoma of skin of face #20 grams ciclopirox 8 % topical solution 1 applic topical DAILY TOENAIL 04/26/21 FUNGUS #6.6 mL albuterol sulfate 90 mcg/actuation 2 puff inhalation Q4H PRN SOB #3 08/15/21 aerosol inhaler Inhalers fluticasone propionate 50 1 spray intranasal UD PRN Nasal 08/15/21 mcg/actuation nasal Congestion #3 BTLS spray,suspension levothyroxine 75 mcg tablet 75 mcg PO DAILY #90 tabs 02/06/22 Results & Data (ED) Vital Signs Vital Signs - 24 hr 05/20/22 17:40 05/20/22 18:05 05/20/22 18:19 Temperature 37.1 C Temperature Source Oral Pulse Rate 141 H Pulse Rate [Apical] 89 87 Pulse Strength Normal Respiratory Rate 18 18 18 Respiratory Effort / Characteristics Non-Labored Spontaneous Non-Labored Spontaneous Non-Labored Spontaneous Respiratory Depth Normal Normal Normal Respiratory Pattern Regular Blood Pressure 172/124 H Blood Pressure [Left Arm] 142/81 H 146/88 H Blood Pressure Mean 140 Blood Pressure Mean [Left Arm] 101 107 Blood Pressure Position Lying Blood Pressure Position [Left Arm] Lying Lying Pulse Oximetry 98 97 96 Oxygen Delivery Method Room Air Room Air Room Air Sepsis Recent Fever Within 48 Hours No Sepsis New/Unexplained Change in Mental Status No Sepsis Action Taken by Nursing No Action Required 05/20/22 18:32 05/20/22 18:56 05/20/22 20:16 Temperature Temperature Source Pulse Rate Pulse Rate [Apical] 81 83 92 H Pulse Strength Respiratory Rate 18 18 18 Respiratory Effort / Characteristics Non-Labored Spontaneous Non-Labored Spontaneous Respiratory Depth Normal Normal Respiratory Pattern Blood Pressure Blood Pressure [Left Arm] 139/91 165/94 H 152/93 H Blood Pressure Mean Blood Pressure Mean [Left Arm] 107 117 112 Blood Pressure Position Blood Pressure Position [Left Arm] Lying Lying Pulse Oximetry 96 97 95 Oxygen Delivery Method Room Air Room Air Room Air Sepsis Recent Fever Within 48 Hours Sepsis New/Unexplained Change in Mental Status Sepsis Action Taken by Group Home Medications Current Medication List: was personally reviewed by me Laboratory Data Attestation: I reviewed the patient's lab results. Result diagrams: 05/20/22 17:25 05/20/22 17:25 Lab Results 05/20/22 05/20/22 05/20/22 Range/Units 15:09 17:25 17:25 WBC 7.76 (4.8-10.8) K/ul RBC 5.01 (3.93-5.22) M/uL Hgb 14.6 (12.0-16.0) g/dl Hct 43.9 (34.1-44.9) % MCV 87.6 (80.0-100.0) fL MCH 29.1 (25.0-34.0) pg MCHC 33.3 (32.0-36.0) g/dL RDW Std Deviation 43.0 (36.4-46.3) fL RDW Coeff of Sejal 13.5 (11.5-14.5) % Plt Count 303 (130-400) K/uL MPV 10.3 (9.4-12.3) fL Immature Gran % (Auto) 0.3 % Neut % (Auto) 59.7 % Lymph % (Auto) 27.7 % Cal[place]oun % (Auto) 10.7 % Eos % (Auto) 1.0 % Baso % (Auto) 0.6 % Neut # (Auto) 4.63 (1.4-6.5) K/uL Lymph # (Auto) 2.15 (1.2-3.4) K/uL [place]oun # (Auto) 0.83 H (0.24-0.82) K/uL Eos # (Auto) 0.08 (0-0.50) K/uL Baso # (Auto) 0.05 (0-0.2) K/uL Immature Gran # (Auto) 0.02 (0.00-0.02) K/uL PT 10.1 (9.0-12.0) Seconds INR 0.9 (0.9-1.1) APTT 27.2 (21.0-31.0) Seconds PTT Ratio 1.0 Sodium (136-145) mmol/L Potassium (3.5-5.1) mmol/L Chloride (98-107) mmol/L Carbon Dioxide (21-32) mmol/L Anion Gap (3-11) BUN (6-23) mg/dl Creatinine (0.6-1.2) mg/dl Est Cr Clr Drug Dosing ml/min Est GFR ( Amer) ml/min Est GFR (Non-Af Amer) ml/min BUN/Creatinine Ratio (10-20) Glucose (70-99(Fasting)) mg/dl Calcium (8.5-10.1) mg/dl Magnesium (1.7-2.4) mg/dl Total Bilirubin (0.2-1.0) mg/dl AST (13-39) U/L ALT (7-52) U/L Alkaline Phosphatase (34-104) U/L Troponin I High Sens (0-14) pg/ml Total Protein (6.0-8.3) gm/dl Albumin (3.4-5.0) gm/dl Globulin (2.5-4.0) gm/dl Albumin/Globulin Ratio (0.9-2) TSH (0.300-4.500) uIu/ml Urine Color Urine Appearance (Clear) Urine pH (4.5-7.5) Ur Specific [place] (1.000-1.030) Urine Protein (Negative) Urine Glucose (UA) (Negative) Urine Ketones (Negative) Urine Blood (Negative) Urine Nitrite (Negative) Urine Bilirubin (Negative) Urine Urobilinogen (Negative) Ur Leukocyte Esterase (Negative) Urine WBC (Auto) (0-5) /hpf Urine RBC (Auto) (0-4) /hpf U Hyaline Cast (Auto) (0-5) /lpf U Epithel Cells (Auto) (0-5) /lpf Urine Bacteria (Auto) (Negative) SARS-CoV-2, RNA, NAAT NEGATIVE (NEGATIVE) 05/20/22 05/20/22 05/20/22 Range/Units 17:25 17:25 19:15 WBC (4.8-10.8) K/ul RBC (3.93-5.22) M/uL Hgb (12.0-16.0) g/dl Hct (34.1-44.9) % MCV (80.0-100.0) fL MCH (25.0-34.0) pg MCHC (32.0-36.0) g/dL RDW Std Deviation (36.4-46.3) fL RDW Coeff of Sejal (11.5-14.5) % Plt Count (130-400) K/uL MPV (9.4-12.3) fL Immature Gran % (Auto) % Neut % (Auto) % Lymph % (Auto) % [place]oun % (Auto) % Eos % (Auto) % Baso % (Auto) % Neut # (Auto) (1.4-6.5) K/uL Lymph # (Auto) (1.2-3.4) K/uL [place] # (Auto) (0.24-0.82) K/uL Eos # (Auto) (0-0.50) K/uL Baso # (Auto) (0-0.2) K/uL Immature Gran # (Auto) (0.00-0.02) K/uL PT (9.0-12.0) Seconds INR (0.9-1.1) APTT (21.0-31.0) Seconds PTT Ratio Sodium 139 (136-145) mmol/L Potassium 3.8 (3.5-5.1) mmol/L Chloride 106 (98-107) mmol/L Carbon Dioxide 27 (21-32) mmol/L Anion Gap 6 (3-11) BUN 15 (6-23) mg/dl Creatinine 0.80 (0.6-1.2) mg/dl Est Cr Clr Drug Dosing 61.1 ml/min Est GFR ( Amer) 84.2 ml/min Est GFR (Non-Af Amer) 72.6 ml/min BUN/Creatinine Ratio 18.8 (10-20) Glucose 98 (70-99(Fasting)) mg/dl Calcium 9.8 (8.5-10.1) mg/dl Magnesium 2.2 (1.7-2.4) mg/dl Total Bilirubin 0.9 (0.2-1.0) mg/dl AST 23 (13-39) U/L ALT 26 (7-52) U/L Alkaline Phosphatase 86 (34-104) U/L Troponin I High Sens 8.2 (0-14) pg/ml Total Protein 7.6 (6.0-8.3) gm/dl Albumin 4.4 (3.4-5.0) gm/dl Globulin 3.2 (2.5-4.0) gm/dl Albumin/Globulin Ratio 1.4 (0.9-2) TSH 0.849 (0.300-4.500) uIu/ml Urine Color Yellow Urine Appearance Clear (Clear) Urine pH 7.5 (4.5-7.5) Ur Specific [place] 1.007 (1.000-1.030) Urine Protein Negative (Negative) Urine Glucose (UA) Negative (Negative) Urine Ketones Negative (Negative) Urine Blood Negative (Negative) Urine Nitrite Negative (Negative) Urine Bilirubin Negative (Negative) Urine Urobilinogen Negative (Negative) Ur Leukocyte Esterase Trace H (Negative) Urine WBC (Auto) 5-10 H (0-5) /hpf Urine RBC (Auto) 0-4 (0-4) /hpf U Hyaline Cast (Auto) 1-5 (0-5) /lpf U Epithel Cells (Auto) 5-10 H (0-5) /lpf Urine Bacteria (Auto) Negative (Negative) SARS-CoV-2, RNA, NAAT (NEGATIVE) Administered Medications Artificial Tears (Artificial Tears) 1 drops OP PRN PRN PRN Reason: Dry Eyes Stop: 06/19/22 21:49 Last Admin: 05/21/22 01:07 Dose: 1 drops Documented By: AMM Diltiazem HCl (Diltiazem Hcl 30 Mg Tab) 30 mg PO Q6H HIEN Stop: 06/19/22 21:59 Last Admin: 05/20/22 22:02 Dose: 30 mg Documented By: WARNER Lactated Ringer's (Lr) 1,000 mls @ 100 mls/hr IV .Q10H HIEN Stop: 05/21/22 07:59 Last Admin: 05/20/22 21:53 Dose: 100 mls/hr Documented By: WARNER Discontinued Medications Diltiazem HCl (Diltiazem Hcl 5 Mg/Ml 5 Ml Vial) 20 mg IV NOW STA Stop: 05/20/22 17:50 Last Admin: 05/20/22 17:57 Dose: 20 mg Documented By: FLETCHER Co-signed By: JING Sodium Chloride (Nss) 500 mls @ 999 mls/hr IV .Q31M HIEN Stop: 05/20/22 18:30 Last Infusion: 05/20/22 18:32 Dose: 0 mls/hr Documented By: Admin: 05/20/22 17:57 Dose: 999 mls/hr Documented By: FLETCHER Magnesium Sulfate/Dextrose (Magnesium Sulfate / D5w) 1 gm in 100 mls @ 100 mls/hr IV NOW STA Stop: 05/20/22 18:48 Last Infusion: 05/20/22 18:56 Dose: 0 mls/hr Documented By: Admin: 05/20/22 17:57 Dose: 100 mls/hr Documented By: FLETCHER Psyllium Hydrophilic Mucilloid (Psyllium Or Guar Gum Fiber Powder Packet) 1 pkt PO NOW STA Stop: 05/20/22 23:36 Last Admin: 05/21/22 00:08 Dose: 1 pkt Documented By: WARNER Imaging Data Radiologist's Impression: Chest X-Ray 05/20/22 17:49 XR chest 1V portable HISTORY: weakness COMPARISON: Chest 07/19/2006. FINDINGS: The lungs are clear. The heart is normal in size. No pleural effusions. No pneumothorax. There are surgical clips again noted within the right axilla. IMPRESSION: No acute process. ACT 112: Negative or not required by law. Electronically signed by: Jarad Alfaro M.D. 05/20/2022 6:[address] 05/20/22 17:[address] DOSE: 691.05 mGy.cm HISTORY: Altered mental status. TECHNIQUE: Multiaxial CT images of the head were performed without the use of intravenous contrast. Automated exposure control was utilized for this study. A dose lowering technique was utilized adhering to the principles of ALARA. Comparison: Head CT 02/23/2022. Findings: The paranasal sinuses and mastoid air cells are clear. The calvarium and skull base are intact. There is no mass, hematoma, midline shift, acute infarct. White matter hypodensity is nonspecific but suggestive of microvascular ischemic change. The ventricles and sulci demonstrate mild age-related involutional changes. Impression: No acute intracranial abnormality. Atrophy and microvascular ischemic changes. ACT 112: Negative or not required by law. Electronically signed by: Jarad Alfaro M.D. 05/20/2022 7:04 PM Discharge Plan Visit Data Chief Complaint: Cardiac Assessment Stated Complaint: A fib ED Provider: Yomi Cash Discharge Problem: Atrial fibrillation with rapid ventricular response, Episode of generalized weakness, Abnormal EKG Patient Disposition: Admitted As Inpatient Discharge Instructions Interventions: ED Discharge Assessment Last Done: 05/20/22 21:08
[2022-05-20 17:59] LABS: Basophils # (auto) 0.05 K/uL (0-0.2); Basophils % (auto) 0.6 %; Eosinophils # (auto) 0.08 K/uL (0-0.50); Hematocrit (blood only) 43.9 % (34.1-44.9); Hemoglobin 14.6 g/dl (12.0-16.0); Immature Granulocytes # (auto) 0.02 K/uL (0.00-0.02); Immature Granulocytes % (auto) 0.3 %; Lymphocytes # (auto) 2.15 K/uL (1.2-3.4); Lymphocytes % (auto) 27.7 %; Mean Corpuscular Hemoglobin 29.1 pg (25.0-34.0); Mean Corpuscular Hgb Conc 33.3 g/dL (32.0-36.0); Mean Corpuscular Volume 87.6 fL (80.0-100.0); Mean Platelet Volume 10.3 fL (9.4-12.3); Monocytes # (auto) 0.83 K/uL (0.24-0.82); Monocytes % (auto) 10.7 %; Neutrophils # (auto) 4.63 K/uL (1.4-6.5); Neutrophils % (auto) 59.7 %; Platelet Count 303 K/uL (130-400); RDW Coefficient of Variation 13.5 % (11.5-14.5); Red Blood Count 5.01 M/uL (3.93-5.22); White Blood Count 7.76 K/ul (4.8-10.8)
[2022-05-20] MEDS ORDERED: SODIUM CHLORIDE 0.9% 500 ML IV SCH (18:00)
[2022-05-20 18:11] LABS: INR 0.9 (0.9-1.1); Partial Thromboplastin Time 27.2 Seconds (21.0-31.0); Prothrombin Time 10.1 Seconds (9.0-12.0)
[2022-05-20 18:20] LABS: Albumin Globulin Ratio 1.4 (0.9-2); Albumin Level 4.4 gm/dl (3.4-5.0); BUN Creatinine Ratio 18.8 (10-20); Bilirubin,Total 0.9 mg/dl (0.2-1.0); Calcium 9.8 mg/dl (8.5-10.1); Creatinine Clr Calc Pharmacy 61.1 ml/min; Est GFR (African American) 84.2 ml/min; Est GFR (Non-African American) 72.6 ml/min; Globulin 3.2 gm/dl (2.5-4.0); Magnesium 2.2 mg/dl (1.7-2.4); Potassium 3.8 mmol/L (3.5-5.1); Total Protein 7.6 gm/dl (6.0-8.3)
[2022-05-20 18:26] LABS: Troponin I High Sensitivity 8.2 pg/ml (0-14)
--- NOTE | 2022-05-20 18:57 | XRay Report ---
XR chest 1V portable HISTORY: weakness COMPARISON: Chest 07/19/2006. FINDINGS: The lungs are clear. The heart is normal in size. No pleural effusions. No pneumothorax. Th ere are surgical clips again noted within the right axilla. IMPRESSION: No acute process. ACT 112: Negative or not required by law. Electronically signed by: Jarad Alfaro M.D. 05/20/2022 6:55 PM
--- NOTE | 2022-05-20 19:06 | CT Scan Report ---
HEAD CT NONCONTRAST CT DOSE: 691.05 mGy.cm HISTORY: Altered mental status. TECHNIQUE: Multiaxial CT images of the head were performed without the use of intravenous contrast. A utomated exposure control was utilized for this study. A dose lowering technique was utilized adheri ng to the principles of ALARA. Comparison: Head CT 02/23/2022. Findings: The paranasal sinuses and mastoid air cells are clear. The calvarium and skull base are int act. There is no mass, hematoma, midline shift, acute infarct. White matter hypodensity is nonspecifi c but suggestive of microvascular ischemic change. The ventricles and sulci demonstrate mild age-rela geovanna involutional changes. Impression: No acute intracranial abnormality. Atrophy and microvascular ischemic changes. ACT 112: Negative or not required by law. Electronically signed by: Jarad Alfaro M.D. 05/20/2022 7:04 PM
[2022-05-20 19:33] LABS: Appearance Urine Clear (Clear); Bacteria Urine Automated Negative (Negative); Bilirubin Urine Negative (Negative); Blood Urine Negative (Negative); Color Urine Yellow; Glucose Urine UA Negative (Negative); Ketones Urine Negative (Negative); Leukocyte Esterase Urine Trace (Negative); Nitrite Urine Negative (Negative); Protein Urine Negative (Negative); RBC Urine Automated 0-4 /hpf (0-4); Specific Gravity Urine 1.007 (1.000-1.030); Urobilinogen Urine Negative (Negative); pH Urine 7.5 (4.5-7.5)
--- NOTE | 2022-05-20 19:39 | History & Physical Report ---
Date of Service May 20, 2022 Assessment & Plan (1) Atrial fibrillation with RVR: Plan: - New diagnosis for patient, although seems she may have been in this for the past 2 months given her Fitbit readings of this since mid March. - Potassium 3.8, mag 2.2, TSH 0.49, within normal limits. No evidence of infection. Patient admits to stress and poor hydration. Also has a family history of A. fib in her mother. - Received 20 IV diltiazem in ED with initial response of heart rate into the 80s, now 801 20, appears to be in a flutter on monitor. * Will start on Cardizem 30 mg q6h starting this evening. - Cardiology consult to see and evaluate patient in AM. - Echo ordered. - Patient's [id number] score (2--age of 72 and female gender) = a 2.9% risk of embolic event. She has no history of hypertension, heart failure, diabetes vascular disease or prior VTE. She does currently take ASA 81 mg daily. Given her recall of what sounds like a TIA earlier this month when she experienced aphasia, would likely benefit from anticoagulation. Will defer decision to car diology. - B/l US LE Doppler of legs given history of travel and leg pain--if DVT seen then will order chest CT to look for PE - No neuro deficits concerning for TIA/CVA--defer further brain imaging. (2) Subclinical hypothyroidism: Plan: - Continue levothyroxine 75 mcg. (3) Asthma: Plan: - Albuterol inhaler as needed, patient has not required this recently. - Continue Flonase, Zyrtec, azelastine for allergic symptoms. Plan - Admit to PCU. - SCDs for VTE PPx. - Full code. History of Present Illness Chief Complaint: Irregular heart rate at PCP appointment this afternoon Primary Care Provider: MD Goldy Pereznie Brentontori is a 72 year old female with past medical history significant for hypothyroidism, breast cancer in 1989, asthma, and allergic rhinitis who presents today from her PCP office with a rapid heart rate. Patient was at a scheduled visit with her PCP when her heart rate was discovered to be very fast and irregular. 911 was promptly called for transportation to ED. Patient does not have a documented personal history of A. fib but does have family history in her mother who had all throughout her life. Patient states that in December 2019, she was having a hip operation that had to be postponed for several hours due to an irregular and fast heart rate during preop, otherwise has been asymptomatic. In the middle of March of this year her Fitbit started telling her that she was in A. fib. She has never experienced palpitations, chest pain, shortness of breath, lightheadedness, dizziness and essentially has no idea if/when she is in A. fib other than when her watch indicates this. She has been feeling well over the past few days, but has had recent travel, noting a 3-hour car drive today, reports some leg soreness and has admittedly been hydrating poorly over the past day and was under a significant amount of stress today. Also, at some point in the past month, patient was seen in [place] ED for a brief episode of aphasia, however she states she had imaging of her head and heart, as well as an EKG, as well as routine labs and her work-up was unremarkable there. In ED, she presented with heart rate initially 140, after Cardizem 20 IV now between 80 and 120 during my visit. Vitals otherwise within normal limits. Labs largely unremarkable, her potassium is 3.8 and magnesium 2.2. TSH 0.849. hs troponin 8.2. No evidence of infection. COVID-negative. Allergies Allergy/AdvReac Type Severity Reaction Status Date / Time doxycycline Allergy Severe FACIAL Verified 05/20/22 16:13 SWELLING, POSSIBLE REJI SYNDROME. hornet venom Allergy Severe Anaphylaxis Verified 05/20/22 16:13 mustard Allergy Severe ANAPHYLAXIS Verified 05/20/22 16:13 turmeric Allergy Severe ANAPHYLAXIS Verified 05/20/22 16:13 codeine Allergy Intermediate RASH Verified 05/20/22 16:13 levocetirizine Allergy Intermediate ITCHING Verified 05/20/22 16:13 ALL OVER naproxen Allergy Intermediate RED Verified 05/20/22 16:13 PURPLISH SPOTS ON LEG, LOOKS LIKE BROKEN BLOOD VESSELS oxycodone [From Percocet] Allergy Intermediate Rash Verified 05/20/22 16:13 propoxyphene Allergy Intermediate RASH AND Verified 05/20/22 16:13 VOMITTING silver Allergy Intermediate RASH, ITCHY Verified 05/20/22 16:13 silver nitrate Allergy Intermediate RASH, ITCHY Verified 05/20/22 16:13 sodium citrate Allergy Intermediate SKIN Verified 05/20/22 16:13 REDNESS AND CHEST CONGESTION sodium metabisulfite Allergy Intermediate SKIN Verified 05/20/22 16:13 REDNESS AND CHEST CONGESTION sodium sulfate Allergy Intermediate SKIN Verified 05/20/22 16:13 REDNESS AND CHEST CONGESTION grass pollen-perennial rye, Allergy Unknown ALLERGY Verified 05/20/22 16:13 standar TESTING cumin AdvReac Severe Anaphylaxis Verified 05/20/22 16:13 azelastine AdvReac Intermediate "ERATIC Verified 05/20/22 16:13 HEART BEAT" pseudoephedrine AdvReac Intermediate "ERATIC Verified 05/20/22 16:13 [From [facility]] HEART BEAT" Bee sting Allergy Severe BRILLIANT Uncoded 05/20/22 16:13 RED, AND BP DROPPED DUST MITES Allergy Mild CONGESTION Uncoded 05/20/22 16:13 Home Medications Medication Instructions Recorded Confirmed Type artificial tears(hypromellose) 0.3 1 drp ophthalmic (eye) DIRECTED 08/08/19 05/20/22 History % eye drops PRN Dry Eyes tretinoin microspheres 0.1 % 1 appln topical HS Basa cell 08/09/19 05/20/22 Rx topical gel carcinoma of skin of face #20 grams multivit with 1 tab PO DAILY 12/22/19 05/20/22 History krzpihlo-phdj-WF-lutein 8 mg iron-400 mcg-300 mcg tablet (Centrum Silver Women) psyllium husk 3.4 gram/5.4 gram 1 tsp PO DAILY 12/22/19 05/20/22 History oral powder (Metamucil) ciclopirox 8 % topical solution 1 applic topical DAILY TOENAIL 04/26/21 05/20/22 Rx FUNGUS #6.6 mL albuterol sulfate 90 mcg/actuation 2 puff inhalation Q4H PRN SOB #3 08/15/21 05/20/22 Rx aerosol inhaler Inhalers fluticasone propionate 50 1 spray intranasal UD PRN Nasal 08/15/21 05/20/22 Rx mcg/actuation nasal Congestion #3 BTLS spray,suspension levothyroxine 75 mcg tablet 75 mcg PO DAILY #90 tabs 02/06/22 05/20/22 Rx ascorbic acid (vitamin C) 500 mg 500 mg PO DAILY 02/23/22 05/20/22 History tablet (Vitamin C) azelastine 137 mcg (0.1 %) nasal 1 spray intranasal DIRECTED PRN 02/23/22 05/20/22 History spray aerosol Nasal Congestion cholecalciferol (vitamin D3) 50 50 mcg PO DAILY 02/23/22 05/20/22 History mcg (2,000 unit) capsule (Vitamin D3) epinephrine 0.3 mg/0.3 mL 0.3 mg IM DIRECTED PRN 02/23/22 05/20/22 History injection, auto-injector anaphylaxis Bio Complete 3 2 tab PO AMPM 05/20/22 05/20/22 History cetirizine 5 mg-pseudoephedrine ER 1 tab PO DAILY 05/20/22 05/20/22 History 120 mg tablet,extended release,12hr (Zyrtec-D) Past Med/Surg History Medical History Acid reflux UNSURE IF DEFINITIVE DX Arthritis LUMBAR Asthma PT REPORTS "MAYBE SITUATIONAL ASTHMA" Basal cell carcinoma of skin of face HX Borderline diabetes ? Chronic sinusitis Deviated nasal septum Dyslipidemia Elevated BUN RECENT LABS, BORDERLINE ELEVATED PER PT History of breast cancer HX MASTECTOMY History of cataract R&L History of diverticulitis Hx antineoplastic chemotherapy 2005 WITH RADIATION FOR BREAST CANCER Hx of radiation therapy FOR BREAST CANCER REOCCURENCE. Multiple thyroid nodules Osteopenia Poor historian Subclinical hypothyroidism Uterine leiomyoma HX Surgical History H/O tooth extraction History of arthroplasty of right hip 12/22/2019 History of biopsy THYROID History of breast surgery HX LEFT SILICONE IMPLANT AND REMOVED HX LEFT SILICONE IMPLANT (CURRENT IN PLACE) History of surgical removal of meniscus of knee History of total hip replacement DEC 2019 [facility] (PT REPORTS "HEART WEIRD" AND SURGERY WAS POST PONED A FEW HOURS) Nausea and vomiting after administration of anesthetic agent S/P abdominoplasty HX S/P breast biopsy HX S/P breast reconstruction HX S/P cataract surgery HX R&L S/P colonoscopy S/P hernia repair HX S/P mastectomy HX OF left 1989, right 1990 S/P YAG capsulotomy HX Family History Mother Bipolar disorder Osteoarthritis Breast cancer Hypertension Stroke Father Alzheimer disease Hypertension Grandfather (Paternal) Cardiac disorder Aunt Breast cancer maternal Colorectal cancer maternal Asthma paternal Grandmother Family history of diabetes mellitus Denies family history of Ovarian cancer Social History Smoking Status: Never smoker Second Hand Exposure: No; Hx Alcohol Use: No Hx Substance Use: No Preferred Language: Yoruba Communication Ability: Effective Visual Impairment: No Limitations Manager Sap Required: No Beliefs That Will Affect Care: None marital status: Current Living Situation: Spouse Other Information That Helps Us Care for You: No Feels Safe at Home: Yes Safety Concerns: Feels Safe At This Time Seatbelt Use: always Assistive Devices: Cane Review of Systems Review of Systems: Constitutional: No fever/chills, weakness, fatigue, myalgias, anorexia, night sweats Eyes: No diplopia, no worsening or blurred vision ENT: normal hearing, no trouble swallowing Respiratory: No cough, sputum, dyspnea at rest or on exertion Cardiovascular: No chest pain, tightness or palpitations Abdomen: No pain, nausea, vomiting, diarrhea or constipation : Denies dysuria, hematuria, increased urgency/frequency, urinary retention Musculoskeletal: No joint pain, calf pain, swelling Neurologic: No weakness, numbness/tingling, or balance problems Psychiatric: No anxiety or depression Skin: No rash or itch Physical Exam Physical Exam: General: awake, alert, no apparent distress Head: Normocephalic, atraumatic ENT: PERRL, EOMI, no pharyngeal exudate, mucous membranes moist Chest: Clear to auscultation, on room air, no adventitious breath sounds Cardiac: Irregularly irregular rhythm consistent with A. fib/flutter; no murmur, no JVD, normal peripheral pulses, good capillary refill Abdominal: NABS x 4 quadrants, soft, nontender to palpation, no rebound, guarding or tenderness Extremities: Normal inspection, no peripheral edema or erythema, calfs nontender to palpation Psych: Normal mood and affect Neuro: AAO x 3, strength intact bilaterally and rated 5/5, no motor deficits, speech is clear, no peripheral sensory deficits Skin: no rash or erythema Results & Data Results & Data ([facility]) Vital Signs (Past 12 Hours) Vital Signs Temp Pulse Pulse Resp BP BP Pulse Ox 05/20/22 18:56 83 18 165/94 H 97 05/20/22 18:32 81 18 139/91 96 05/20/22 18:19 87 18 146/88 H 96 05/20/22 18:05 89 18 142/81 H 97 05/20/22 17:40 37.1 C 141 H 18 172/124 H 98 O2 Del Method 05/20/22 18:56 Room Air 05/20/22 18:32 Room Air 05/20/22 18:19 Room Air 05/20/22 18:05 Room Air 05/20/22 17:40 Room Air Laboratory Results Abnormal lab results 05/20/22 05/20/22 Range/Units 17:25 19:15 [place] # (Auto) 0.83 H (0.24-0.82) K/uL Ur Leukocyte Esterase Trace H (Negative) Urine WBC (Auto) 5-10 H (0-5) /hpf U Epithel Cells (Auto) 5-10 H (0-5) /lpf Diagnostic Findings Chest X-Ray 05/20/22 17:49 XR chest 1V portable HISTORY: weakness COMPARISON: Chest 07/19/2006. FINDINGS: The lungs are clear. The heart is normal in size. No pleural effusions. No pneumothorax. There are surgical clips again noted within the righ t axilla. IMPRESSION: No acute process. ACT 112: Negative or not required by law. Electronically signed by: Jarad Alfaro M.D. 05/20/2022 6:[address] 05/20/22 17:[address] DOSE: 691.05 mGy.cm HISTORY: Altered mental status. TECHNIQUE: Multiaxial CT images of the head were performed without the use of intravenous contrast. Automated exposure control was utilized for this study. A dose lowering technique was utilized adhering to the principles of ALARA. Comparison: Head CT 02/23/2022. Findings: The paranasal sinuses and mastoid air cells are clear. The calvarium and skull base are intact. There is no mass, hematoma, midline shift, acute infarct. White matter hypodensity is nonspecific but suggestive of microvascular ischemic change. The ventricles and sulci demonstrate mild age-related involutional changes. Impression: No acute intracranial abnormality. Atrophy and microvascular ischemic changes. ACT 112: Negative or not required by law. Electronically signed by: Jarad Alfaro M.D. 05/20/2022 7:04 PM ECG Additional Comments: Atrial fibrillation with rapid ventricular response Cannot rule out Anterior infarct , age undetermined Abnormal ECG When compared with ECG of 23-FEB-2022 17:47, Atrial fibrillation has replaced Sinus rhythm Vent. rate has increased BY 45 BPM Nonspecific T wave abnormality has replaced inverted T waves in Anterior leads. Code Status & VTE Plan Code Status Full code Supervising Physician Co-Signing Physician Notes Attending addendum: I have physically seen this patient, have supervised the TREVOR's activities, and agree with the H&P unless as otherwise noted. Assessment and Plan: Atrial fibrillation with RVR- The patient will be admitted to telemetry for serial cardiac enzymes, serial EKG's, cardiac rhythm monitoring and a 2-D echocardiogram with Dopplers. No previous evidence of A. fib Status post diltiazem 20 mg IV push from the ED Start Cardizem 30 mg p.o. every 6 hours this evening, and modified extended release in the morning [id number] score 2, giving a risk of 2.9% for embolic stroke Continue aspirin 81 mg daily Consult cardiology for ongoing management Hypothyroidism- Continue levothyroxine 75 mcg daily TSH acceptable Remaining orders and notations as noted PG Care Time/CCT Total # of Minutes Spent Total Time Spent with Patient: Total time spent is greater than 50% in coordination of care (as documented) at patient's floor/unit and/or counseling patient: Coding Level of Care Code 79827 Initial Inpt Care Lvl 2 Diagnoses Atrial fibrillation with RVR I48.91 Subclinical hypothyroidism E03.8 Asthma J45.909
[2022-05-20] MEDS ORDERED: FLUTICASONE PROPIONATE NA SPR 16 GM BTL PRN (21:35)
[2022-05-20] MEDS ORDERED: ALBUTEROL HFA 8 GM INHALER INH PRN (21:35)
[2022-05-20] MEDS ORDERED: AZELASTINE HCL 0.1% NASAL 200 SPRAYS/27,400 MCG BTL PRN (21:35)
[2022-05-20] MEDS ORDERED: ARTIFICIAL TEARS OP PRN (21:50)
[2022-05-20] MEDS ORDERED: LACTATED RINGER'S 1,000 ML IV SCH (22:00)
[2022-05-20] MEDS: dilTIAZem HCL 30 MG TAB PO SCH (22:02)
[2022-05-20] MEDS ORDERED: PSYLLIUM or GUAR GUM FIBER POWDER PACKET PO STA (23:35)
[2022-05-21] MEDS: dilTIAZem HCL 30 MG TAB PO SCH ×4 (04:36→21:03)
[2022-05-21] MEDS: LEVOTHYROXINE SODIUM 75 MCG TABLET PO SCH (05:58)
[2022-05-21] MEDS: ACETAMINOPHEN 325 MG TAB PO PRN ×2 (06:01→14:28)
[2022-05-21] MEDS ORDERED: PROCHLORPERAZINE 5 MG in SYRINGE 4 ML IV ONE (06:30)
--- NOTE | 2022-05-21 07:58 | Ultrasound Report ---
US venous doppler LE BI CLINICAL HISTORY: leg pain, recent travel, new afib TECHNIQUE: Bilateral lower extremity real-time compression venous ultrasound with Color Doppler imagi ng. Utilizing real-time ultrasonic imaging multiple real time high-resolution ultrasonic images with compression and noncompression maneuvers of the deep venous system in addition to color doppler imagi ng were performed from the common femoral vein through the proximal calf veins. COMPARISON: None available at the time of this dictation. FINDINGS: Currently there is normal compressibility of the deep venous system from the common femoral vein thro ugh the proximal calf veins. No superficial venous thrombosis is identified. Impression: No evidence of deep venous thrombus. ACT 112: Negative or not required by law. Electronically signed by: Zelalem Georges M.D. 05/21/2022 7:57 AM
--- NOTE | 2022-05-21 08:17 | Hospitalist Progress Note ---
Date of Service May 21, 2022 Assessment & Plan (1) Atrial fibrillation with rapid ventricular response: Plan: 72 year old female with past medical history significant for hypothyroidism, breast cancer in 1989, asthma, and allergic rhinitis who presented from her PCP office with a rapid heart rate 1) Atrial fibrillation with RVR: - New diagnosis for patient, although seems she may have been in this for the past 2 years given her Fitbit readings of this since mid March and previous noted tachycardia in ortho office. - Patient's [id number] score (2--age of 72 and female gender) = a 2.9% risk of embolic event. She has no history of hypertension, heart failure, diabetes vascular disease or prior VTE. She does currently take ASA 81 mg daily. - No neuro deficits concerning for TIA/CVA--defer further brain imaging. - Potassium 3.8, mag 2.2, TSH 0.49, within normal limits. No evidence of infection. Patient admits to stress and poor hydration. Also has a family history of A. fib in her mother. - Received 20 IV diltiazem in ED with initial response of heart rate into the 80s, now 801 20, appears to be in a flutter on monitor. * continue Cardizem 30 mg q6h. - Cardiology consulted 2 pauses identified are of uncertain clinical significance has the occurred while sleep. Discussed with Dr. Guido. favor starting a DOAC after monitor is reviewed tomorrow morning (possible need for pacemaker). - Echo ordered, wnl - B/l US LE Doppler neg - converted to sinus 05/21 evening, will continue to monitor, possible pacemaker surgery this week (2) Subclinical hypothyroidism: - Continue levothyroxine 75 mcg. (3) Asthma: - Albuterol inhaler as needed, patient has not required this recently. - Continue Flonase, Zyrtec, azelastine for allergic symptoms. Plan - Admit to PCU. - SCDs for VTE PPx. - Full code. (2) Tick bite of groin: (3) Asthma: Admission and Anticipated Discharge Date Admission Date: May 20, 2022 Supervising Physician Co-Signing Physician Notes I personally examined the patient and verified all clark points of history and exam, discussed case, and agree with decision making with Dr Crowley Feeling okay. Answered all questions the best my ability, discussed the situation to the best my ability and her satisfaction. Vitals noted, in general she is awake and alert pleasant no distress. HEENT normocephalic atraumatic mucous membranes moist. Breathing unlabored no accessory muscle use good effort. Skin shows no rashes no pallor or icterus. Neuro without focal deficits. A. fib/RVRnow with pauseselectrophysiology to evaluate, but seems fairly consistent with sick sinus syndrome. Continue current care for now pending form al EP evaluation. Otherwise as above Subjective Patient seen at bedside anxious comfortable cooperative, she states she had some dizziness facial numbness along her left jawline to her ear earlier this morning and pounding in her carotids after nursing came in to check her vitals, they decreased in intensity through the conversation and she became more calm. 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 Denies any palpatations headache SOB chest pain. Patient also has concern for left eye which she feels is redder than usual, concern for athlete's foot. Patient understands we do not note any significant trauma or infection to her eye. Review of Systems Review of Systems: Negative fever chills Negative headache dizziness Negative chest pain palpitations SOB Negative nausea vomitting diarrhea constipation Negative numbness tingling rash swelling Physical Exam Constitutional: well nourished, + thin, cooperative and comfortable Anxious Eyes: PERRL and EOM intact bilaterally slight erythema noted on medial left eye sclera ENMT: external ear and nose normal, oropharynx normal Neck: trachea midline, no thyromegaly Respiratory: normal respiratory effort, lungs clear to auscultation Cardiovascular: Rate/Rhythm: + irregularly irregular Chest (Breasts): Chest: normal inspection of chest Gastrointestinal (Abdomen): normal bowel sounds, soft, nontender, no hepatosplenomegaly Skin: no rashes, warm and dry Results & Data Results & Data ([facility]) Vital Signs (Past 12 Hours) Vital Signs Temp Pulse Pulse Resp BP BP Pulse Ox 05/21/22 07:54 36.9 C 83 18 112/78 97 05/21/22 03:27 36.7 C 86 16 128/86 98 05/21/22 02:43 36.7 C 86 16 122/78 97 05/20/22 23:37 36.9 C 107 H 14 132/70 97 05/20/22 21:57 36.7 C 84 18 135/110 H 98 05/20/22 21:08 89 18 123/85 98 O2 Del Method 05/21/22 07:54 Room Air 05/21/22 03:27 Room Air 05/21/22 02:43 Room Air 05/20/22 23:37 Room Air 05/20/22 21:57 Room Air 05/20/22 21:08 Room Air Diagnostic Findings Laboratory Results WBC 7.76 K/ul (4.8-10.8) 05/20/22 17:25 RBC 5.01 M/uL (3.93-5.22) 05/20/22 17:25 Hgb 14.6 g/dl (12.0-16.0) 05/20/22 17:25 Hct 43.9 % (34.1-44.9) 05/20/22 17:25 MCV 87.6 fL (80.0-100.0) 05/20/22 17:25 MCH 29.1 pg (25.0-34.0) 05/20/22 17:25 MCHC 33.3 g/dL (32.0-36.0) 05/20/22 17:25 RDW Std Deviation 43.0 fL (36.4-46.3) 05/20/22 17:25 RDW Coeff of Sejal 13.5 % (11.5-14.5) 05/20/22 17:25 Plt Count 303 K/uL (130-400) 05/20/22 17:25 MPV 10.3 fL (9.4-12.3) 05/20/22 17:25 Immature Gran % (Auto) 0.3 % 05/20/22 17:25 Neut % (Auto) 59.7 % 05/20/22 17:25 Lymph % (Auto) 27.7 % 05/20/22 17:25 [place] % (Auto) 10.7 % 05/20/22 17:25 Eos % (Auto) 1.0 % 05/20/22 17:25 Baso % (Auto) 0.6 % 05/20/22 17:25 Neut # (Auto) 4.63 K/uL (1.4-6.5) 05/20/22 17:25 Lymph # (Auto) 2.15 K/uL (1.2-3.4) 05/20/22 17:25 [place] # (Auto) 0.83 K/uL (0.24-0.82) H 05/20/22 17:25 Eos # (Auto) 0.08 K/uL (0-0.50) 05/20/22 17:25 Baso # (Auto) 0.05 K/uL (0-0.2) 05/20/22 17:25 Immature Gran # (Auto) 0.02 K/uL (0.00-0.02) 05/20/22 17:25 PT 10.1 Seconds (9.0-12.0) 05/20/22 17:25 INR 0.9 (0.9-1.1) 05/20/22 17:25 APTT 27.2 Seconds (21.0-31.0) 05/20/22 17:25 PTT Ratio 1.0 05/20/22 17:25 Sodium 139 mmol/L (136-145) 05/20/22 17:25 Potassium 3.8 mmol/L (3.5-5.1) 05/20/22 17:25 Chloride 106 mmol/L (98-107) 05/20/22 17:25 Carbon Dioxide 27 mmol/L (21-32) 05/20/22 17:25 Anion Gap 6 (3-11) 05/20/22 17:25 BUN 15 mg/dl (6-23) 05/20/22 17:25 Creatinine 0.80 mg/dl (0.6-1.2) 05/20/22 17:25 Est Cr Clr Drug Dosing 61.1 ml/min 05/20/22 17:25 Est GFR ( Amer) 84.2 ml/min 05/20/22 17:25 Est GFR (Non-Af Amer) 72.6 ml/min 05/20/22 17:25 BUN/Creatinine Ratio 18.8 (10-20) 05/20/22 17:25 Glucose 98 mg/dl (70-99(Fasting)) 05/20/22 17:25 Calcium 9.8 mg/dl (8.5-10.1) 05/20/22 17:25 Magnesium 2.2 mg/dl (1.7-2.4) 05/20/22 17:25 Total Bilirubin 0.9 mg/dl (0.2-1.0) 05/20/22 17:25 AST 23 U/L (13-39) 05/20/22 17:25 ALT 26 U/L (7-52) 05/20/22 17:25 Alkaline Phosphatase 86 U/L (34-104) 05/20/22 17:25 Troponin I High Sens 8.2 pg/ml (0-14) 05/20/22 17:25 Total Protein 7.6 gm/dl (6.0-8.3) 05/20/22 17:25 Albumin 4.4 gm/dl (3.4-5.0) 05/20/22 17:25 Globulin 3.2 gm/dl (2.5-4.0) 05/20/22 17:25 Albumin/Globulin Ratio 1.4 (0.9-2) 05/20/22 17:25 TSH 0.849 uIu/ml (0.300-4.500) 05/20/22 17:25 Urine Color Yellow 05/20/22 19:15 Urine Appearance Clear (Clear) 05/20/22 19:15 Urine pH 7.5 (4.5-7.5) 05/20/22 19:15 Ur Specific [place] 1.007 (1.000-1.030) 05/20/22 19:15 Urine Protein Negative (Negative) 05/20/22 19:15 Urine Glucose (UA) Negative (Negative) 05/20/22 19:15 Urine Ketones Negative (Negative) 05/20/22 19:15 Urine Blood Negative (Negative) 05/20/22 19:15 Urine Nitrite Negative (Negative) 05/20/22 19:15 Urine Bilirubin Negative (Negative) 05/20/22 19:15 Urine Urobilinogen Negative (Negative) 05/20/22 19:15 Ur Leukocyte Esterase Trace (Negative) H 05/20/22 19:15 Urine WBC (Auto) 5-10 /hpf (0-5) H 05/20/22 19:15 Urine RBC (Auto) 0-4 /hpf (0-4) 05/20/22 19:15 U Hyaline Cast (Auto) 1-5 /lpf (0-5) 05/20/22 19:15 U Epithel Cells (Auto) 5-10 /lpf (0-5) H 05/20/22 19:15 Urine Bacteria (Auto) Negative (Negative) 05/20/22 19:15 Lyme Disease IgG Ab Negative (Negative) 05/21/22 11:24 Lyme Disease IgM Ab Negative (Negative) 05/21/22 11:24 SARS-CoV-2, RNA, NAAT NEGATIVE (NEGATIVE) 05/20/22 15:09 Impressions Chest X-Ray 05/20/22 17:49 XR chest 1V portable HISTORY: weakness COMPARISON: Chest 07/19/2006. FINDINGS: The lungs are clear. The heart is normal in size. No pleural effusi ons. No pneumothorax. There are surgical clips again noted within the right axilla. IMPRESSION: No acute process. ACT 112: Negative or not required by law. Electronically signed by: Jarad Alfaro M.D. 05/20/2022 6:[address] 05/20/22 17:[address] DOSE: 691.05 mGy.cm HISTORY: Altered mental status. TECHNIQUE: Multiaxial CT images of the head were performed without the use of intravenous contrast. Automated exposure control was utilized for this study. A dose lowering technique was utilized adhering to the principles of ALARA. Comparison: Head CT 02/23/2022. Findings: The paranasal sinuses and mastoid air cells are clear. The calvarium and skull base are intact. There is no mass, hematoma, midline shift, acute infarct. White matter hypodensity is nonspecific but suggestive of microvascular ischemic change. The ventricles and sulci demonstrate mild age-related involutional changes. Impression: No acute intracranial abnormality. Atrophy and microvascular ischemic changes. ACT 112: Negative or not required by law. Electronically signed by: Jarad Alfaro M.D. 05/20/2022 7:04 PM Venous Doppler Study 05/20/22 21:18 US venous doppler LE BI CLINICAL HISTORY: leg pain, recent travel, new afib TECHNIQUE: Bilateral lower extremity real-time compression venous ultrasound with Color Doppler imaging. Utilizing real-time ultrasonic imaging multiple real time high-resolution ultrasonic images with compression and noncompression maneuvers of the deep venous system in addition to color doppler imaging were performed from the common femoral vein through the proximal calf veins. COMPARISON: None available at the time of this dictation. FINDINGS: Currently there is normal compressibility of the deep venous system from the common femoral vein through the proximal calf veins. No superficial venous thrombosis is identified. Impression: No evidence of deep venous thrombus. ACT 112: Negative or not required by law. Electronically signed by: Zelalem Georges M.D. 05/21/2022 7:57 AM Medications Administered Current Inpatient Medications Acetaminophen (Acetaminophen 325 Mg Tab) 650 mg PO Q4H PRN PRN Reason: Pain or Fever Stop: 06/19/22 21:34 Last Admin: 05/21/22 14:28 Dose: 650 mg Albuterol (Albuterol Hfa 8 Gm Inhaler) 2 puffs INH Q4H PRN PRN Reason: Shortness Of Breath Stop: 06/19/22 21:34 Artificial Tears (Artificial Tears) 1 drops OP PRN PRN PRN Reason: Dry Eyes Stop: 06/19/22 21:49 Last Admin: 05/21/22 01:07 Dose: 1 drops Ascorbic Acid (Ascorbic Acid 500 Mg Tab) 500 mg PO DAILY HIEN Stop: 06/20/22 08:59 Last Admin: 05/21/22 08:42 Dose: 500 mg Azelastine HCl (Azelastine Hcl 0.1% Nasal 200 Sprays/27,400 Mcg Btl) 1 sprays NA DAILY PRN PRN Reason: Nasal Congestion Stop: 06/19/22 21:34 Cetirizine HCl (Cetirizine Hcl 10 Mg Tablet) 10 mg PO DAILY HIEN Stop: 06/20/22 08:59 Last Admin: 05/21/22 08:42 Dose: 10 mg Diltiazem HCl (Diltiazem Hcl 30 Mg Tab) 30 mg PO Q6H HIEN Stop: 06/19/22 21:59 Last Admin: 05/21/22 15:47 Dose: 30 mg Fluticasone Propionate (Fluticasone Propionate Na Spr 16 Gm Btl) 1 sprays NA DAILY PRN PRN Reason: Nasal Congestion Stop: 06/19/22 21:34 Levothyroxine Sodium (Levothyroxine Sodium 75 Mcg Tablet) 75 mcg PO DAILYBB HIEN Stop: 06/20/22 06:29 Last Admin: 05/21/22 05:58 Dose: 75 mcg Miscellaneous (*Ciclopirox 8 % Solution*Order Awaiting Action) 1 each N/A QS HIEN Stop: 06/20/22 00:00 Last Admin: 05/21/22 08:42 Dose: Not Given Psyllium Hydrophilic Mucilloid (Psyllium Or Guar Gum Fiber Powder Packet) 1 pkt PO HS HIEN Stop: 06/20/22 20:59 Vitamin D (Cholecalciferol 1,000 Units 25 Mcg Tab) 2,000 units PO DAILY HIEN Stop: 06/20/22 08:59 Last Admin: 05/21/22 08:42 Dose: 2,000 units Resident Activity Tracking Resident Involvement: Resident Care Provided Care Provided: Adult Hospital Medicine
[2022-05-21] MEDS: CETIRIZINE HCL 10 MG TABLET PO SCH (08:42)
[2022-05-21] MEDS: CHOLECALCIFEROL 1,000 UNITS 25 MCG TAB PO SCH (08:42)
[2022-05-21] MEDS: ASCORBIC ACID 500 MG TAB PO SCH (08:42)
[2022-05-21] MEDS ORDERED: PSYLLIUM or GUAR GUM FIBER POWDER PACKET PO SCH ×2 (09:00→21:00)
[2022-05-21] MEDS ORDERED: Nursing to Pharmacy Communication SCH (09:00)
--- NOTE | 2022-05-21 10:40 | XCELERA ---
[id number]
[2022-05-21 12:53] LABS: Lyme Ab IgG w/WB Rflx Negative (Negative); Lyme Ab IgM w/WB Rflx Negative (Negative)
[2022-05-21] MEDS ORDERED: POTASSIUM CHLORIDE PWD 20 MEQ PACK PO ONE (13:10)
--- NOTE | 2022-05-21 13:45 | Cardiology Consultation ---
Date of Consultation May 21, 2022 Assessment & Plan (1) Atrial fibrillation with rapid ventricular response: -rate now adequately controlled on oral diltiazem. -2 pauses identified are of uncertain clinical significance has the occurred while sleep. Discussed with Dr. Guido. -may have had a TIA last month. -favor starting a DOAC after monitor is reviewed tomorrow morning (? need for pacemaker). -encouraging that her troponin level is normal despite a rapid ventricular response to atrial fibrillation. History of Present Illness Attending Physician: Ayad Carpio DO History of Present Illness Mrs. Cole is a 72-year-old female admitted yesterday with atrial fibrillation and a rapid ventricular response. This consultation was ordered to assist in her cardiac management. The patient was in her prior state of health until the day of presentation. She had just returned home from a 3 hour car ride. She noticed soreness in her right lower extremity which was concerning. She did presented to the emergency room for further care. On arrival here, she was noted to be in atrial fibrillation with a rapid ventricular response. She was experiencing no symptoms such as palpitations, fatigue, or exercise intolerance. She was placed on oral diltiazem with good control of her ventricular response. Overnight, the patient demonstrated to pauses. The 1st was 3.3 seconds in length with another pause of 5 seconds in length. These both occurred while she was asleep. The patient began to note a read above atrial fibrillation on her Fitbit back in mid March. Again, she experienced no symptoms, and therefore, did not seek care. According to her report, she was seen in an emergency room in [place] last month after an episode aphasia. This was felt to be a possible TIA. Currently, patient is resting comfortably in bed without complaints. Past medical and surgical history 1. Hypercholesterolemia 2. Hyperglycemia 3. Asthma 4. Hypothyroidism 5. GERD 6. Allergic rhinitis 7. Uterine leiomyoma 8. Breast cancer-1989, 2005 9. Bilateral mastectomies 10. Right THR-December 2019 Social history and lives with her No tobacco alcohol Family history Mother at 94 from a CVA. She did have atrial fibrillation. Father at 69 from Alzheimer's dementia A sister has depression Review of systems A 10 review systems was undertaken and negative except that described above. Allergies Allergy/AdvReac Type Severity Reaction Status Date / Time doxycycline Allergy Severe FACIAL Verified 05/20/22 16:13 SWELLING, POSSIBLE REJI SYNDROME. hornet venom Allergy Severe Anaphylaxis Verified 05/20/22 16:13 mustard Allergy Severe ANAPHYLAXIS Verified 05/20/22 16:13 turmeric Allergy Severe ANAPHYLAXIS Verified 05/20/22 16:13 codeine Allergy Intermediate RASH Verified 05/20/22 16:13 levocetirizine Allergy Intermediate ITCHING Verified 05/20/22 16:13 ALL OVER naproxen Allergy Intermediate RED Verified 05/20/22 16:13 PURPLISH SPOTS ON LEG, LOOKS LIKE BROKEN BLOOD VESSELS oxycodone [From Percocet] Allergy Intermediate Rash Verified 05/20/22 16:13 propoxyphene Allergy Intermediate RASH AND Verified 05/20/22 16:13 VOMITTING silver Allergy Intermediate RASH, ITCHY Verified 05/20/22 16:13 silver nitrate Allergy Intermediate RASH, ITCHY Verified 05/20/22 16:13 sodium citrate Allergy Intermediate SKIN Verified 05/20/22 16:13 REDNESS AND CHEST CONGESTION sodium metabisulfite Allergy Intermediate SKIN Verified 05/20/22 16:13 REDNESS AND CHEST CONGESTION sodium sulfate Allergy Intermediate SKIN Verified 05/20/22 16:13 REDNESS AND CHEST CONGESTION grass pollen-perennial rye, Allergy Unknown ALLERGY Verified 05/20/22 16:13 standar TESTING cumin AdvReac Severe Anaphylaxis Verified 05/20/22 16:13 azelastine AdvReac Intermediate "ERATIC Verified 05/20/22 16:13 HEART BEAT" pseudoephedrine AdvReac Intermediate "ERATIC Verified 05/20/22 16:13 [From Zyrtec-D] HEART BEAT" Bee sting Allergy Severe BRILLIANT Uncoded 05/20/22 16:13 RED, AND BP DROPPED DUST MITES Allergy Mild CONGESTION Uncoded 05/20/22 16:13 Home Medications Medication Instructions Recorded Confirmed Type artificial tears(hypromellose) 0.3 1 drp ophthalmic (eye) DIRECTED 08/08/19 05/20/22 History % eye drops PRN Dry Eyes tretinoin microspheres 0.1 % 1 appln topical HS Basa cell 08/09/19 05/20/22 Rx topical gel carcinoma of skin of face #20 grams multivit with 1 tab PO DAILY 12/22/19 05/20/22 History ocgdfsej-qfsq-SE-lutein 8 mg iron-400 mcg-300 mcg tablet (Centrum Silver Women) psyllium husk 3.4 gram/5.4 gram 1 tsp PO DAILY 12/22/19 05/20/22 History oral powder (Metamucil) ciclopirox 8 % topical solution 1 applic topical DAILY TOENAIL 04/26/21 05/20/22 Rx FUNGUS #6.6 mL albuterol sulfate 90 mcg/actuation 2 puff inhalation Q4H PRN SOB #3 08/15/21 05/20/22 Rx aerosol inhaler Inhalers fluticasone propionate 50 1 spray intranasal UD PRN Nasal 08/15/21 05/20/22 Rx mcg/actuation nasal Congestion #3 BTLS spray,suspension levothyroxine 75 mcg tablet 75 mcg PO DAILY #90 tabs 02/06/22 05/20/22 Rx ascorbic acid (vitamin C) 500 mg 500 mg PO DAILY 02/23/22 05/20/22 History tablet (Vitamin C) azelastine 137 mcg (0.1 %) nasal 1 spray intranasal DIRECTED PRN 02/23/22 05/20/22 History spray aerosol Nasal Congestion cholecalciferol (vitamin D3) 50 50 mcg PO DAILY 02/23/22 05/20/22 History mcg (2,000 unit) capsule (Vitamin D3) epinephrine 0.3 mg/0.3 mL 0.3 mg IM DIRECTED PRN 02/23/22 05/20/22 History injection, auto-injector anaphylaxis Bio Complete 3 2 tab PO AMPM 05/20/22 05/20/22 History cetirizine 5 mg-pseudoephedrine ER 1 tab PO DAILY 05/20/22 05/20/22 History 120 mg tablet,extended release,12hr (Zyrtec-D) Patient History Medical History Acid reflux UNSURE IF DEFINITIVE DX Arthritis LUMBAR Asthma PT REPORTS "MAYBE SITUATIONAL ASTHMA" Basal cell carcinoma of skin of face HX Borderline diabetes ? Chronic sinusitis Deviated nasal septum Dyslipidemia Elevated BUN RECENT LABS, BORDERLINE ELEVATED PER PT History of breast cancer HX MASTECTOMY History of cataract R&L History of diverticulitis Hx antineoplastic chemotherapy 2005 WITH RADIATION FOR BREAST CANCER Hx of radiation therapy FOR BREAST CANCER REOCCURENCE. Multiple thyroid nodules Osteopenia Poor historian Subclinical hypothyroidism Uterine leiomyoma HX Surgical History H/O tooth extraction History of arthroplasty of right hip 12/22/2019 History of biopsy THYROID History of breast surgery HX LEFT SILICONE IMPLANT AND REMOVED HX LEFT SILICONE IMPLANT (CURRENT IN PLACE) History of surgical removal of meniscus of knee History of total hip replacement DEC 2019 [facility] (PT REPORTS "HEART WEIRD" AND SURGERY WAS POST PONED A FEW HOURS) Nausea and vomiting after administration of anesthetic agent S/P abdominoplasty HX S/P breast biopsy HX S/P breast reconstruction HX S/P cataract surgery HX R&L S/P colonoscopy S/P hernia repair HX S/P mastectomy HX OF left 1989, right 1990 S/P YAG capsulotomy HX Family History Mother Bipolar disorder Osteoarthritis Breast cancer Hypertension Stroke Father Alzheimer disease Hypertension Grandfather (Paternal) Cardiac disorder Aunt Breast cancer maternal Colorectal cancer maternal Asthma paternal Grandmother Family history of diabetes mellitus Denies family history of Ovarian cancer Social History Smoking Status: Never smoker Second Hand Exposure: No; Hx Alcohol Use: No Hx Substance Use: No Preferred Language: Chinese Communication Ability: Effective Visual Impairment: No Limitations Supervisor Coin Machine Required: No Beliefs That Will Affect Care: None marital status: Current Living Situation: Spouse Other Information That Helps Us Care for You: No Feels Safe at Home: Yes Safety Concerns: Feels Safe At This Time Seatbelt Use: always Assistive Devices: Cane Physical Exam Physical Exam: In general is well-developed well-nourished white female no acute distress. HEENT exam is negative. Neck is supple with full carotid upstrokes. No carotid bruits. Jugular is pressure is flat at 90. There is no thyromegaly. Cardiovascular exam reveals irregular irregular rhythm with distant heart sounds. No obvious murmurs. No S3. Lungs are clear without rales, rhonchi, or wheezes. Abdomen is soft and nontender without bruits. Extremities reveal intact radial artery pulses bilaterally. There is no periphe ral edema. Results & Data ([facility]) Vital Signs (Past 12 Hours) Vital Signs Temp Pulse Resp BP Pulse Ox O2 Del Method 05/21/22 11:28 36.7 C 85 18 134/76 98 Room Air 05/21/22 08:00 Room Air 05/21/22 07:54 36.9 C 83 18 112/78 97 Room Air 05/21/22 03:27 36.7 C 86 16 128/86 98 Room Air 05/21/22 02:43 36.7 C 86 16 122/78 97 Room Air Laboratory Results CBC notes hemoglobin 14.6, crit 43.9, white count 7.76, and platelet count [id number]. Electrolytes note a sodium of 139, potassium 3.8, chloride 106, bicarb 27, BUN 15, creatinine 0.8, glucose of 98. High sensitivity troponin is normal at 8.2. TSH is normal at 0.85. T4 is also normal 1.4. Diagnostic Findings EKG on presentation notes atrial fibrillation with a rapid ventricular response. There is a poor R-wave progression across the anterior precordium. Chest x-ray shows no active disease. PG Care Time/CCT Total # of Minutes Spent Total Time Spent with Patient: Total time spent is greater than 50% in coordination of care (as documented) at patient's floor/unit and/or counseling patient: Coding Level of Care Code 89274 Initial Inpt Care Lvl 3 Diagnoses Atrial fibrillation with rapid ventricular response I48.91
--- NOTE | 2022-05-21 16:40 | Electrocardiogram Report ---
Test Reason : Blood Pressure : / mmHG Vent. Rate : 120 BPM Atrial Rate : 120 BPM P-R Int : 000 ms QRS Dur : 074 ms QT Int : 334 ms P-R-T Axes : 000 057 063 degrees QTc Int : 472 ms Atrial fibrillation with rapid ventricular response Poor R wave progression, consider anterior PA vs. lead placement vs. LVH Abnormal ECG When compared with ECG of 23-FEB-2022 17:47, Atrial fibrillation has replaced Sinus rhythm Vent. rate has increased BY 45 BPM Nonspecific T wave abnormality has replaced inverted T waves in Anterior leads Confirmed by Yomi Peraza ([id number]) on 05/21/2022 4:39:59 PM Referred By: Caitlin Jeter Confirmed By:Yomi Peraza
--- NOTE | 2022-05-21 17:47 | Billing Data ---
Date of Service May 21, 2022 Coding Level of Care Code 43349 Subseq Hosp Care Lvl 3
[2022-05-21] MEDS ORDERED: ZOLPIDEM TARTRATE 5 MG TAB PO PRN (21:18)
[2022-05-22] MEDS: dilTIAZem HCL 30 MG TAB PO SCH ×2 (03:38→10:36)
[2022-05-22] MEDS: LEVOTHYROXINE SODIUM 75 MCG TABLET PO SCH (05:53)
[2022-05-22 06:50] LABS: BUN Creatinine Ratio 26.4 (10-20); Calcium 9.3 mg/dl (8.5-10.1); Creatinine Clr Calc Pharmacy 56.2 ml/min; Est GFR (African American) 76.1 ml/min; Est GFR (Non-African American) 65.6 ml/min
--- NOTE | 2022-05-22 08:01 | Hospitalist Progress Note ---
Date of Service May 22, 2022 Assessment & Plan (1) Atrial fibrillation with rapid ventricular response: Plan: 72 year old female with past medical history significant for hypothyroidism, breast cancer in 1989, asthma, and allergic rhinitis who presented from her PCP office with a rapid heart rate 1) Atrial fibrillation with RVR: - New diagnosis for patient, although seems she may have been in this for the past 2 years given her Fitbit readings of this since mid March and previous noted tachycardia in ortho office. - Patient's [id number] score (2--age of 72 and female gender) = a 2.9% risk of embolic event. She has no history of hypertension, heart failure, diabetes vascular disease or prior VTE. She does currently take ASA 81 mg daily. - No neuro deficits concerning for TIA/CVA--defer further brain imaging. - Potassium 3.8, mag 2.2, TSH 0.49, within normal limits. No evidence of infection. Patient admits to stress and poor hydration. Also has a family history of A. fib in her mother. - Received 20 IV diltiazem in ED with initial response of heart rate into the 80s, now 801 20, appears to be in a flutter on monitor. * continue Cardizem 30 mg q6h. - Cardiology consulted 2 pauses identified are of uncertain clinical significance has the occurred while sleep. Discussed with Dr. Guido. favor starting a DOAC after monitor is reviewed tomorrow morning (possible need for pacemaker). - Echo ordered, wnl - B/l US LE Doppler neg - converted to sinus 05/21 evening, will continue to monitor, possible pacemaker surgery this week (2) Subclinical hypothyroidism: - Continue levothyroxine 75 mcg. (3) Asthma: - Albuterol inhaler as needed, patient has not required this recently. - Continue Flonase, Zyrtec, azelastine for allergic symptoms. Plan - Admit to PCU. - SCDs for VTE PPx. - Full code. (2) Tick bite of groin: (3) Asthma: Admission and Anticipated Discharge Date Admission Date: May 20, 2022 Results & Data Results & Data ([facility]) Vital Signs (Past 12 Hours) Vital Signs Temp Pulse Pulse Resp BP Pulse Ox O2 Del Method 05/22/22 07:51 36.7 C 63 20 124/47 L 97 Room Air 05/22/22 03:38 58 L 05/22/22 03:32 36.7 C 59 L 18 126/49 L 96 Room Air 05/21/22 21:00 Room Air 05/21/22 22:30 71 05/21/22 23:27 36.4 C L 63 18 115/54 L 97 Room Air 05/21/22 21:02 64
[2022-05-22] MEDS: CETIRIZINE HCL 10 MG TABLET PO SCH (08:53)
[2022-05-22] MEDS: ASCORBIC ACID 500 MG TAB PO SCH (08:53)
[2022-05-22] MEDS: CHOLECALCIFEROL 1,000 UNITS 25 MCG TAB PO SCH (08:53)
--- NOTE | 2022-05-22 09:51 | Cardiology Progress Note ---
Date of Service May 22, 2022 Assessment & Plan (1) Atrial fibrillation with rapid ventricular response: Plan: -spontaneously converted to sinus rhythm at noon yesterday. -2 pauses identified occurred while asleep. Discussed with Dr. Guido. No further pauses. No indication for permanent pacing at this time. -may have had a TIA last month. -would start a DOAC today. -can convert short-acting diltiazem to long-acting diltiazem 120 mg daily. -encouraging that her troponin level is normal despite a rapid ventricular response to atrial fibrillation. -stable for hospital discharge. Admission and Anticipated Discharge Date Admission Date: May 20, 2022 Subjective The patient is resting comfortably bed without complaints of chest pain, dyspnea, or palpitations. We have again reviewed the management of paroxysmal atrial fibrillation. Physical Exam Physical Exam: In general is well-developed well-nourished white female no acute distress. HEENT exam is negative. Neck is supple with full carotid upstrokes. No carotid bruits. Jugular is pressure is flat at 90. There is no thyromegaly. Cardiovascular exam reveals a regular rhythm with distant heart sounds. No obvious murmurs. No S3. Lungs are clear without rales, rhonchi, or wheezes. Abdomen is soft and nontender without bruits. Extremities reveal intact radial artery pulses bilaterally. There is no peripheral edema. Results & Data ([facility]) Vital Signs (Past 12 Hours) Vital Signs Temp Pulse Pulse Resp BP Pulse Ox O2 Del Method 05/22/22 09:15 59 L 05/22/22 07:51 36.7 C 63 20 124/47 L 97 Room Air 05/22/22 03:38 58 L 05/22/22 03:32 36.7 C 59 L 18 126/49 L 96 Room Air 05/21/22 22:30 71 05/21/22 23:27 36.4 C L 63 18 115/54 L 97 Room Air Diagnostic Findings nuclear monitoring technician notes normal sinus rhythm since spontaneous cardioversion at noon yesterday. No further pauses. PG Care Time/CCT Total # of Minutes Spent Total Time Spent with Patient: Total time spent is greater than 50% in coordination of care (as documented) at patient's floor/unit and/or counseling patient: Coding Level of Care Code 48310 Subseq Hosp Care Lvl 3 Diagnoses Atrial fibrillation with rapid ventricular response I48.91
--- NOTE | 2022-05-22 12:26 | Discharge Summary ---
Date of Service May 22, 2022 Admission HPI Per Admitting Provider Tabatha Cole is a 72 year old female with past medical history significant for hypothyroidism, breast cancer in 1989, asthma, and allergic rhinitis who presents today from her PCP office with a rapid heart rate. Patient was at a scheduled visit with her PCP when her heart rate was discovered to be very fast and irregular. 911 was promptly called for transportation to ED. Patient does not have a documented personal history of A. fib but does have family history in her mother who had all throughout her life. Patient states that in December 2019, she was having a hip operation that had to be postponed for several hours due to an irregular and fast heart rate during preop, otherwise has been asymptomatic. In the middle of March of this year her Fitbit started telling her that she was in A. fib. She has never experienced palpitations, chest pain, shortness of breath, lightheadedness, dizziness and essentially has no idea if/when she is in A. fib other than when her watch indicates this. She has been feeling well over the past few days, but has had recent travel, noting a 3-hour car drive today, reports some leg soreness and has admittedly been hydrating poorly over the past day and was under a significant amount of stress today. Also, at some point in the past month, patient was seen in [place] ED for a brief episode of aphasia, however she states she had imaging of her head and heart, as well as an EKG, as well as routine labs and her work-up was unremarkable there. In ED, she presented with heart rate initially 140, after Cardizem 20 IV now between 80 and 120 during my visit. Vitals otherwise within normal limits. Labs largely unremarkable, her potassium is 3.8 and magnesium 2.2. TSH 0.849. hs troponin 8.2. No evidence of infection. COVID-negative. Admission Exam Per Admitting Provider General: awake, alert, no apparent distress Head: Normocephalic, atraumatic ENT: PERRL, EOMI, no pharyngeal exudate, mucous membranes moist Chest: Clear to auscultation, on room air, no adventitious breath sounds Cardiac: Irregularly irregular rhythm consistent with A. fib/flutter; no murmur, no JVD, normal peripheral pulses, good capillary refill Abdominal: NABS x 4 quadrants, soft, nontender to palpation, no rebound, guarding or tenderness Extremities: Normal inspection, no peripheral edema or erythema, calfs nontender to palpation Psych: Normal mood and affect Neuro: AAO x 3, strength intact bilaterally and rated 5/5, no motor deficits, speech is clear, no peripheral sensory deficits Skin: no rash or erythema Principal Diagnosis A fib with RVR Discharge Exam Constitutional WD/WN, vitals as above Eyes PERRL, conjunctivae normal, anicteric sclerae ENMT external ear and nose normal, oropharynx normal Neck trachea midline, no thyromegaly Respiratory normal respiratory effort, lungs clear to auscultation Cardiovascular RRR, no murmur, no edema Chest (Breasts) Chest: normal inspection of chest Gastrointestinal (Abdomen) normal bowel sounds, soft, nontender, no hepatosplenomegaly Skin no rashes, warm and dry Neurologic CN's II-XI intact bilaterally Discharge Data Allergies Allergy/AdvReac Type Severity Reaction Status Date / Time doxycycline Allergy Severe FACIAL Verified 05/20/22 16:13 SWELLING, POSSIBLE REJI SYNDROME. hornet venom Allergy Severe Anaphylaxis Verified 05/20/22 16:13 mustard Allergy Severe ANAPHYLAXIS Verified 05/20/22 16:13 turmeric Allergy Severe ANAPHYLAXIS Verified 05/20/22 16:13 codeine Allergy Intermediate RASH Verified 05/20/22 16:13 levocetirizine Allergy Intermediate ITCHING Verified 05/20/22 16:13 ALL OVER naproxen Allergy Intermediate RED Verified 05/20/22 16:13 PURPLISH SPOTS ON LEG, LOOKS LIKE BROKEN BLOOD VESSELS oxycodone [From Percocet] Allergy Intermediate Rash Verified 05/20/22 16:13 propoxyphene Allergy Intermediate RASH AND Verified 05/20/22 16:13 VOMITTING silver Allergy Intermediate RASH, ITCHY Verified 05/20/22 16:13 silver nitrate Allergy Intermediate RASH, ITCHY Verified 05/20/22 16:13 sodium citrate Allergy Intermediate SKIN Verified 05/20/22 16:13 REDNESS AND CHEST CONGESTION sodium metabisulfite Allergy Intermediate SKIN Verified 05/20/22 16:13 REDNESS AND CHEST CONGESTION sodium sulfate Allergy Intermediate SKIN Verified 05/20/22 16:13 REDNESS AND CHEST CONGESTION grass pollen-perennial rye, Allergy Unknown ALLERGY Verified 05/20/22 16:13 standar TESTING cumin AdvReac Severe Anaphylaxis Verified 05/20/22 16:13 azelastine AdvReac Intermediate "ERATIC Verified 05/20/22 16:13 HEART BEAT" pseudoephedrine AdvReac Intermediate "ERATIC Verified 05/20/22 16:13 [From Zyrtec-D] HEART BEAT" Bee sting Allergy Severe BRILLIANT Uncoded 05/20/22 16:13 RED, AND BP DROPPED DUST MITES Allergy Mild CONGESTION Uncoded 05/20/22 16:13 Consultations 05/20/22 19:42 ED Decision to Admit Stat 05/20/22 21:35 Consult Cardiology Routine 05/22/22 11:54 Consult [facility] rn post partum Routine Ordered Studies 05/20/22 17:49 CT head/brain wo con Stat 05/20/22 21:18 US venous doppler LE NARCISO Urgent Hospital Course (1) Atrial fibrillation with rapid ventricular response: 72 year old female with past medical history significant for hypothyroidism, breast cancer in 1989, asthma, and allergic rhinitis who presented from her PCP office with a rapid heart rate -started diltiazem 120mg daily -started Eliquis 5mg BID -recommend stopping Zyrtec -D at night, try in morning -patient to follow with cardiology -patient to get cardiac monitoring for cardiac pauses 1) Atrial fibrillation with RVR: New diagnosis for patient, although seems she may have been in this for the past 2 years given her Fitbit readings of this since mid March and previous noted tachycardia in ortho office. Patient's [id number] score (2--age of 72 and female gender) = a 2.9% risk of embolic event. She has no history of hypertension, heart failure, diabetes vascular disease or prior VTE. She does currently take ASA 81 mg daily.No neuro deficits concerning for TIA/CVA--defer further brain imaging. Potassium, mag, TSH within normal limits. No evidence of infection. Patient admits to stress and poor hydration. Also has a family history of A. fib in her mother. Started about cardizem, afib converted overnight. Cardiology consulted: continue Cardizem 30 mg q6h may do 120mg daily in outpatient. 2 pauses identified are of uncertain clinical significance has the occurred while sleep. Discussed with Dr. Guido no need for pace maker at this time. Favor starting a DOAC, started Eliquie 5mg BID. Echo ordered, wnl. B/l US LE Doppler neg. Cardiac Pauses -noted 3 episodes of 3-5 second pauses on telemetry overnight as patient was sleeping, asymptomatic. Seen by cardiology no need for pacer at this time, however, patient educated if she feels weakness/dizziness to check her fitbit for low HR. Patient to obtain engine monitor in outpatient to assess for further pauses (2) Subclinical hypothyroidism: Continue levothyroxine 75 mcg. (3) Asthma: Albuterol inhaler as needed, patient has not required this recently. Continue Flonase, Zyrtec, azelastine for allergic symptoms. (2) Tick bite of groin: (3) Asthma: Total Time Total Time Spent Total Time Spent (In Minutes): see attending attestation Discharge Plan Discharge Items Patient Disposition: Home - Self-Care Reason For Visit: A fib RVR Discharge Diagnosis: A fib RVR Activity: Resume your previous activity Non-emergency contact: Primary Care Provider Call non-emergency contact if: you have any medication questions, your symptoms worsen, your pain is worsening and you have a fever Follow-up/Referrals: Carmen Cerda PA-C [Physician Pressurization Mechanic] - 06/05/22 11:00 am (Please follow up with Carmen Cerda PA-C on 06/05/22 at 11:00 am. Please arrive to the office at 10:45 am for your appointment. If you are unable to keep this appointment, please call the office to reschedule at [phone].) Yomi Peraza MD [Physician] - (Will require heart monitor for pauses) Caitlin Ramesh MD [Primary Care Provider] - (Follow up appointment scheduled with Carmen Cerda PA-C.) Diet: Regular Addtl Attending Provider Instructions: You were admitted to the hospital for Paroxysmal Atrial Fibrillation, which means every so often your heart beats irregularly fast. You were treated with Cardizem, and your heart rate converted back to normal sinus rhythm. Please continue taking Cardizem 120mg daily, and follow up with your PCP and Air Hole Driller. Being in Atrial Fibrillation can place people at risk for clot formation in the heart, which places you at risk for the clot traveling to other places in your body. Please take the blood thinner Eliquis 5mg twice a day to prevent any clot formation. You were noted to have 3-5 second pauses in your heart rate overnight while you slept. You were evaluated by Cardiology who have determined you do not need a pacemaker at this time. If you feel yourself getting more regularly weak or dizzy, or you find your heart rate becomes consistently low, please see your clinical team lead for reevaluation. We will arrange for you to receive cardiac monitoring for further pauses. A discharge summary will be sent to your primary care physician to ensure continuity of care. Please bring this discharge summary with you to your next office appointment so that your provider can review it at that time. Follow-up appointments: Make a follow-up appointment with your PCP within the next week. It is very important that you follow up with them shortly after discharge from the hospital. We have arranged a follow up appointment with Cardiology. Keep all your follow-up appointments as already scheduled. If you cannot make an appointment, notify your provider. Medications: Your medication list has been reviewed and reconciled upon discharge to ensure accuracy and continuity of care. An updated list of all your medications is included with your hospital discharge paperwork. Please review this list closely, and make note of any changes. * We sent a new medication called Cardizem to your pharmacy. Take Cardizem (Diltiazem) 120mg one tablet daily * We sent a new medication called Eliquis to your pharmacy. Take Eliquis 5mg one tablet twice a day. Take your medications as instructed; do not skip a dose of your medicines. Make sure all of your doctors know every medicine you are taking (including ugla-ldf-aixcdja medicines, vitamins, and supplements). Call your primary care provider before taking any new medicines (including ramv-vwi-iuewgaf medicines, vitamins, and supplements), because some of these may interact with your current medications, or may make your symptoms worse. Tell your primary care provider if you cannot afford your medications. CONTACT YOUR PRIMARY CARE PROVIDER if you experience any of the following: Difficulty breathing, fever, chills Increased weakness or fatigue, dizziness, loss of consciousness Difficulty following your treatment plan, or difficulty taking medications CALL 911 OR GO TO THE EMERGENCY DEPARTMENT if you experience any of the following: Sudden, severe abdominal pain or nausea/vomiting Severe chest pain, or chest pain that radiates (moves) to your jaw or arm Sudden, severe shortness of breath or difficulty breathing Thank you for allowing us to participate in your care. Pending Studies at Discharge: No Stand-Alone Forms: My [facility], Smoking Cessation Medications and DC Order Prescriptions: New diltiazem HCl 120 mg capsule,extended release 24hr 120 mg PO DAILY 30 Days Qty: 30 0RF Eliquis 5 mg tablet 5 mg PO BID 30 Days Qty: 60 0RF Continued ciclopirox 8 % solution 1 applic topical DAILY Qty: 6.6 3RF artificial tears(hypromellose) 0.3 % drops 1 drp OP DIRECTED PRN (Reason: Dry Eyes) Label Comments: tretinoin microspheres 0.1 % gel 1 appln topical HS Qty: 20 0RF levothyroxine 75 mcg tablet 75 mcg PO DAILY Qty: 90 3RF albuterol sulfate 90 mcg/actuation HFA aerosol inhaler 2 puff inhalation Q4H PRN (Reason: SOB) Qty: 3 3RF fluticasone propionate 50 mcg/actuation spray,suspension 1 spray intranasal UD PRN (Reason: Nasal Congestion) Qty: 3 3RF Centrum Silver Women 8 mg iron-400 mcg-300 mcg Tablet 1 tab PO DAILY Metamucil 3.4 gram/5.4 gram Powder 1 tsp PO DAILY ascorbic acid (vitamin C) [Vitamin C] 500 mg Tablet 500 mg PO DAILY cholecalciferol (vitamin D3) [Vitamin D3] 50 mcg (2,000 unit) Capsule 50 mcg PO DAILY azelastine 137 mcg (0.1 %) aerosol,spray 1 spray INTRANASAL DIRECTED PRN (Reason: Nasal Congestion) epinephrine 0.3 mg/0.3 mL auto-injector 0.3 mg IM DIRECTED PRN (Reason: anaphylaxis) Bio Complete 3 2 tab PO AMPM Discontinued cetirizine-pseudoephedrine [Zyrtec-D] 5-120 mg tablet extended release 12 hr 1 tab PO DAILY Discharge Orders: Discharge Order (Routine); Ordered 05/22/22 Ordered By: Jessica Crowley Admission Data Admit Date/Time: 05/20/22 20:37 Attending Provider: Ayad Carpio Admit Provider: Cyrus Talley Primary Care Provider: Caitlin Ramesh V. Other Providers: Cyrus Talley ; Yomi Peraza Other Interventions: Discharge Summary Assessment (RN) Last Done: 05/22/22 12:03 Supervising Physician Co-Signing Physician Notes I personally examined the patient and verified all clark points of history and exam, discussed case, and agree with decision making with Dr Crowley Feeling okay. Feeling up to going home. Vitals noted, in general she is awake and alert pleasant no distress. HEENT normocephalic atraumatic mucous membranes moist. Breathing unlabored no accessory muscle use good effort. Skin shows no rashes no pallor or icterus. Neuro without focal deficits. A. fib/RVRrates controlled. Cardiology feels safe for home. Outpatient rhythm monitoring to screen for any recurrence of pauses. Anticoagulated. Otherwise as above Resident Activity Tracking Resident Involvement: Resident Care Provided Care Provided: Adult Hospital Medicine
--- NOTE | 2022-05-22 18:03 | Billing Data ---
Date of Service May 22, 2022 Coding Level of Care Code D/C DAY MANAGEMENT <30 MINS
--- NOTE | 2022-07-02 09:21 | Coding Query ---
A supporting diagnosis is required for the test/procedure performed on this patient in order for us to be reimbursed by the patient's insurance. Please provide a supporting diagnosis for the following test/procedure listed below next to the test name along with your signature. *If there is no additional diagnosis for this patient that would support the following test/procedure please document that below next to the test/procedure. Test(s)/Procedure(s) that require a supporting diagnosis: * 57068 VENOUS DOPPLER DIAGNOSIS: Unilateral leg swelling DATE OF SERVICE: 05/20/22 Provider Signature: Sommer Angulo PA-C Date: 07/16/22 Thank you [facility] Information Management Once completed, please kindly fax back to [phone] For questions please call [phone] [facility]
== END 2022-05-22 14:03 | disposition home or self-care (01) | DRG 310 ==
LOC: ED 17:37 → INTOOBSV 20:37 → 2E 20:37 → SUATTDRO 20:37 → 2E 21:08